=== PATIENT | female | born 1940 | race Caucasian/White ===

== ENCOUNTER → 2022-03-12 | Outpatient (CLI) | payer OTHER ==
[~2022-03-12] MED LIST: ASPI-543 PO; ASPI1TAB20 PO; ATO40T PO; ESOM40CA39 PO; EZET10TA22 OR; EZET10TA22 PO; LOSA25TA38 PO; METO-158 PO; METO25TA5 PO
[2022-03-12 13:26] LABS: Basophils # (auto) 0 10 ^3/uL (0-0.2); Basophils % (auto) 0.5 % (0.0-2.0); Eosinophils # (auto) 0.1 10 ^3/uL (0-0.8); Eosinophils % (auto) 1.9 % (0.0-7.0); Hematocrit 41.8 % (36.0-46.0); Hemoglobin 13.9 g/dL (12.2-16.2); Lymphocytes # (auto) 1.3 10 ^3/uL (0.4-5.4); Lymphocytes % (auto) 18.2 % (10.0-50.0); Mean Corpuscular Hemoglobin 29.3 pg (28.0-32.0); Mean Corpuscular Hgb Conc. 33.3 g/dL (32.0-36.0); Mean Corpuscular Volume 87.8 fL (80.0-100.0); Monocytes # (auto) 0.4 10 ^3/uL (0-1.3); Monocytes % (auto) 6.1 % (0.0-12.0); Neutrophils # (auto) 5.4 10 ^3/uL (1.6-8.6); Neutrophils % (auto) 73.3 % (37.0-80.0); Red Blood Cells 4.76 10^6/uL (4.0-5.20); Red Cell Distribution Width 14.1 % (11.8-14.3); White Blood Cell 7.4 10^3/uL (4.4-10.8)
[2022-03-12 13:45] LABS: Free T4 (Free Thyroxine) 1.39 ng/dL (0.89-1.76)
[2022-03-12 13:46] LABS: Folate (Folic Acid) 14.46 ng/mL (5.38-24)
[2022-03-12 13:53] LABS: Calcium 9.4 mg/dL (8.5-10.1); Potassium 3.3 mmol/L (3.5-5.1)
[2022-03-12 13:59] LABS: Albumin 3.9 g/dL (3.4-5.0); Bilirubin, Total 0.5 mg/dL (0.2-1.0); Total Protein 7.5 g/dL (6.4-8.2)
[2022-03-13 06:07] LABS: RPR Non Reactive (Non Reactive)
== END | disposition home or self-care (01) ==
LOC: LAB 12:33
PROVIDERS: ATTEND Internal Medicine
DX: I10 Essential (primary) hypertension (principal); R73.03 Prediabetes; R41.81 Age-related cognitive decline
CPT/HCPCS: 36415; 80053; 80061; 82607; 82746; 83036; 84439; 84443; 85025; 85652; 86592

== ENCOUNTER → 2023-09-24 | Outpatient (CLI) | payer OTHER ==
[~2023-09-24] MED LIST changes: +ASCO500C5 OR; +ATOR40TA52 PO; +CHLO25TA2 PO; +CHOL20007 PO; +DIPH1TAB30 PO; +ESOM20CA PO; +HYDR12.59 PO; +LOSA25TA15 PO; -LOSA25TA38 PO; +MET50T PO; +TRAZ-181 PO
[2023-09-24 14:14] LABS: Basophils # (auto) 0 10 ^3/uL (0-0.2); Basophils % (auto) 0.4 % (0.0-2.0); Eosinophils # (auto) 0.2 10 ^3/uL (0-0.8); Eosinophils % (auto) 3.6 % (0.0-7.0); Hemoglobin 13.1 g/dL (12.2-16.2); Lymphocytes # (auto) 1.6 10 ^3/uL (0.4-5.4); Lymphocytes % (auto) 36.8 % (10.0-50.0); Mean Corpuscular Hemoglobin 30.5 pg (28.0-32.0); Mean Corpuscular Hgb Conc. 33.6 g/dL (32.0-36.0); Mean Corpuscular Volume 90.7 fL (80.0-100.0); Monocytes # (auto) 0.3 10 ^3/uL (0-1.3); Monocytes % (auto) 5.9 % (0.0-12.0); Neutrophils # (auto) 2.3 10 ^3/uL (1.6-8.6); Neutrophils % (auto) 53.3 % (37.0-80.0); Red Blood Cells 4.29 10^6/uL (4.0-5.20); Red Cell Distribution Width 13.4 % (11.8-14.3); White Blood Cell 4.4 10^3/uL (4.4-10.8)
[2023-09-24 14:40] LABS: Alanine Aminotransferase 19 U/L (7-40); Alkaline Phosphatase 91 U/L (46-116); Anion Gap 6 (5-15); Aspartate Aminotransferase 19 U/L (13-40); BUN/Creatinine Ratio 11.9 (10.0-20.0); Blood Urea Nitrogen 7 mg/dL (9-23); Calcium 9.7 mg/dL (8.5-10.1); Carbon Dioxide 30 mmol/L (20-30); Chloride 97 mmol/L (98-107); Glucose 102 mg/dL (74-106); Potassium 3.7 mmol/L (3.5-5.1); Sodium 133 mmol/L (136-145)
[2023-09-24 14:42] LABS: Albumin 4.4 g/dL (3.2-4.8); Bilirubin, Total 0.7 mg/dL (0.2-1.0); Total Protein 6.6 g/dL (5.7-8.2)
[2023-09-24 14:48] LABS: Erythrocyte Sedimentation Rate 7 mm/hr (0-20)
== END | disposition home or self-care (01) ==
LOC: LAB 13:50
PROVIDERS: ATTEND Internal Medicine
DX: R73.03 Prediabetes (principal)
CPT/HCPCS: 36415; 80053; 83036; 84439; 84443; 85025; 85652

== ENCOUNTER 2023-12-16 20:51 | Inpatient (IN) | payer MEDICARE, OTHER ==
[~2023-12-16] VITALS: Ht 157.5 cm; Wt 69.0 kg
[~2023-12-16 20:51] MED LIST changes: -ATO40T PO; +ATOR-507 PO; +LOSA-533 PO; -LOSA25TA15 PO
[2023-12-16 22:45] LABS: Basophils # (auto) 0 10 ^3/uL (0-0.2); Basophils % (auto) 0.4 % (0.0-2.0); Eosinophils # (auto) 0 10 ^3/uL (0-0.8); Hematocrit 37.4 % (36.0-46.0); Hemoglobin 12.9 g/dL (12.2-16.2); Lymphocytes # (auto) 1.1 10 ^3/uL (0.4-5.4); Lymphocytes % (auto) 12.7 % (10.0-50.0); Mean Corpuscular Hemoglobin 30.3 pg (28.0-32.0); Mean Corpuscular Hgb Conc. 34.4 g/dL (32.0-36.0); Monocytes # (auto) 0.6 10 ^3/uL (0-1.3); Monocytes % (auto) 7.2 % (0.0-12.0); Neutrophils # (auto) 6.7 10 ^3/uL (1.6-8.6); Neutrophils % (auto) 79.7 % (37.0-80.0); Nucleated Red Blood Cells % 0.1 %; Red Blood Cells 4.25 10^6/uL (4.0-5.20); Red Cell Distribution Width 12.6 % (11.8-14.3); White Blood Cell 8.4 10^3/uL (4.4-10.8)
[2023-12-16 22:55] LABS: Alanine Aminotransferase 12 U/L (7-40); Alkaline Phosphatase 87 U/L (46-116); Anion Gap 6 (5-15); Aspartate Aminotransferase 13 U/L (13-40); BUN/Creatinine Ratio 9.2 (10.0-20.0); Blood Urea Nitrogen 6 mg/dL (9-23); Calcium 9.4 mg/dL (8.5-10.1); Carbon Dioxide 28 mmol/L (20-30); Chloride 99 mmol/L (98-107); Glucose 115 mg/dL (74-106); Potassium 2.7 mmol/L (3.5-5.1); Sodium 133 mmol/L (136-145)
[2023-12-16 22:56] LABS: Albumin 4.1 g/dL (3.2-4.8); Bilirubin, Total 0.6 mg/dL (0.2-1.0); Total Protein 6.6 g/dL (5.7-8.2)
[2023-12-17] MEDS: ONDANSETRON HCL 4 MG/2 ML VIAL IV ONE (00:45)
[2023-12-17] MEDS: PANTOPRAZOLE 40 MG/10 ML VIAL INJ IV ONE (00:45)
[2023-12-17] MEDS: SODIUM CHLORIDE 0.9% 1,000 ML IV ONE (01:45)
[2023-12-17] MEDS: POTASSIUM CHL 20 Meq TABLET PO ONE (01:45)
[2023-12-17] MEDS: levoFLOXacin 500MG 100 ML IV ONE (03:30)
[2023-12-17] MEDS: metroNIDAZOLE 500MG/100ML 100 ML IV ONE (03:30)
[2023-12-17] MEDS ORDERED: ONDANSETRON HCL 4 MG/2 ML VIAL IV PRN (04:15)
[2023-12-17] MEDS ORDERED: HYDROcodone-ACET 5/325MG TAB PO PRN (04:15)
[2023-12-17 07:51] VITALS: O2SAT 98
[2023-12-17] MEDS: POTASSIUM CHLORIDE 40 MEQ, LIDOCAINE 1% (LOCAL ANESTH.) 4 ML in SODIUM CHL 0.9% 250 ML IV ONE (08:20)
[2023-12-17] MEDS ORDERED: levoFLOXacin 500MG 100 ML IV SCH (10:00)
[2023-12-17] MEDS: METOPROLOL TARTRATE 25 MG TAB PO SCH (10:01)
[2023-12-17] MEDS: ASPirin 81 mg TAB PO SCH (10:01)
[2023-12-17] MEDS: levoFLOXacin 250MG 50 ML IV SCH (10:02)
[2023-12-17] MEDS: hydroCHLOROthiazide 25 MG TAB PO SCH (10:02)
[2023-12-17] MEDS: metroNIDAZOLE 500MG/100ML 100 ML IV SCH (12:09)
[2023-12-17 14:00] VITALS: PULSE 70; RESP 18; O2SAT 98
[2023-12-17 17:20] VITALS: BP 134/59; PULSE 68; RESP 18; TEMP 98.2; O2SAT 99
[2023-12-17] MEDS ORDERED: FLUO10TA18 PO (18:21)
[2023-12-17] MEDS ORDERED: APIX2.5T PO (18:21)
[2023-12-17] MEDS ORDERED: VALS1TAB57 PO (18:21)
[2023-12-17] MEDS ORDERED: AMLO1TAB21 PO (18:21)
[2023-12-17] MEDS ORDERED: EZET-10 PO (18:21)
[2023-12-17] MEDS: ACETAMINOPHEN 325 MG TAB PO PRN (18:55)
[2023-12-17] MEDS: ATORVASTATIN 20 MG TAB PO SCH (21:38)
[2023-12-17 22:00] VITALS: BP 120/50; PULSE 65; RESP 18; TEMP 98.3; O2SAT 97
[2023-12-17] MEDS: metroNIDAZOLE 500 MG TAB PO SCH (22:10)
[2023-12-18] VITALS (7 sets, daily range): BP systolic 115–130; BP diastolic 50–65; PULSE 59–63; RESP 15–19; TEMP 97.6–98.9; O2SAT 95–98
[2023-12-18 02:49] LABS: Urine Bacteria None Seen /hpf (None Seen)
[2023-12-18 03:46] LABS: Urine Blood Negative /uL (Negative); Urine Clarity Clear (Clear); Urine Color Yellow (Yellow); Urine Mucus FEW (None Seen); Urine Protein, UAD TRACE (Negative); Urine Specific Gravity 1.021 (1.001-1.035); Urine Urobilinogen Normal (Negative); Urine WBC 7 /hpf (0 - 5)
[2023-12-18 07:04] LABS: Basophils # (auto) 0 10 ^3/uL (0-0.2); Basophils % (auto) 0.1 % (0.0-2.0); Eosinophils # (auto) 0.7 10 ^3/uL (0-0.8); Eosinophils % (auto) 10.7 % (0.0-7.0); Hematocrit 33.7 % (36.0-46.0); Hemoglobin 11.6 g/dL (12.2-16.2); Lymphocytes # (auto) 0.9 10 ^3/uL (0.4-5.4); Lymphocytes % (auto) 13.8 % (10.0-50.0); Mean Corpuscular Hemoglobin 30.7 pg (28.0-32.0); Mean Corpuscular Hgb Conc. 34.3 g/dL (32.0-36.0); Mean Corpuscular Volume 89.4 fL (80.0-100.0); Monocytes # (auto) 0.7 10 ^3/uL (0-1.3); Monocytes % (auto) 9.7 % (0.0-12.0); Neutrophils # (auto) 4.5 10 ^3/uL (1.6-8.6); Neutrophils % (auto) 65.7 % (37.0-80.0); Nucleated Red Blood Cells % 0.1 %; Red Blood Cells 3.77 10^6/uL (4.0-5.20); Red Cell Distribution Width 12.9 % (11.8-14.3); White Blood Cell 6.8 10^3/uL (4.4-10.8)
[2023-12-18 07:54] LABS: Alanine Aminotransferase 10 U/L (7-40); Albumin 3.3 g/dL (3.2-4.8); Alkaline Phosphatase 67 U/L (46-116); Anion Gap 6 (5-15); Aspartate Aminotransferase 14 U/L (13-40); Calcium 9.2 mg/dL (8.7-10.4); Carbon Dioxide 23 mmol/L (20-30); Chloride 106 mmol/L (98-107); Glucose 99 mg/dL (74-106); Potassium 2.9 mmol/L (3.5-5.1); Sodium 135 mmol/L (136-145)
[2023-12-18 07:56] LABS: Total Protein 5.6 g/dL (5.7-8.2)
[2023-12-18 08:10] LABS: BUN/Creatinine Ratio 7.9 (10.0-20.0); Blood Urea Nitrogen < 5 mg/dL (9-23)
[2023-12-18 08:38] LABS: Bilirubin, Total 0.4 mg/dL (0.2-1.0)
[2023-12-18] MEDS: LACTATED RINGER'S 1,000 ML IV SCH (16:49)
[2023-12-19] VITALS (7 sets, daily range): BP systolic 123–146; BP diastolic 42–62; PULSE 57–67; RESP 16–20; TEMP 97.5–98.3; O2SAT 93–99
[2023-12-19 07:37] LABS: Alanine Aminotransferase 10 U/L (7-40); Albumin 3.3 g/dL (3.2-4.8); Alkaline Phosphatase 75 U/L (46-116); Anion Gap 3 (5-15); Aspartate Aminotransferase 15 U/L (13-40); Bilirubin, Total 0.4 mg/dL (0.2-1.0); Calcium 9.1 mg/dL (8.5-10.1); Carbon Dioxide 28 mmol/L (20-30); Chloride 104 mmol/L (98-107); Glucose 99 mg/dL (74-106); Potassium 2.9 mmol/L (3.5-5.1); Sodium 135 mmol/L (136-145); Total Protein 5.3 g/dL (5.7-8.2)
[2023-12-19 07:49] LABS: BUN/Creatinine Ratio 9.8 (10.0-20.0); Blood Urea Nitrogen < 5 mg/dL (9-23)
[2023-12-19] MEDS: POTASSIUM CHL 20 Meq TABLET PO ONE (11:17)
[2023-12-19] MEDS: metroNIDAZOLE 500 MG TAB PO SCH (14:05)
[2023-12-19] MEDS: diphenhdrAMINE HCL 25 MG CAP PO PRN (17:03)
[2023-12-20 01:00] VITALS: BP 121/64; PULSE 69; RESP 16; TEMP 98; O2SAT 97
[2023-12-20 05:00] VITALS: BP 115/71; PULSE 59; RESP 18; TEMP 98; O2SAT 99
[2023-12-20 08:10] VITALS: PULSE 64; RESP 16; O2SAT 95
[2023-12-20 08:45] VITALS: BP 143/60; PULSE 64; RESP 16; TEMP 98; O2SAT 95
[2023-12-20] MEDS ORDERED: DIPH25CA51 PO (10:20)
[2023-12-20] MEDS ORDERED: LEVO500T91 PO (10:20)
[2023-12-20] MEDS ORDERED: METR-344 PO (10:20)
[2023-12-20 12:43] VITALS: BP 147/66; PULSE 59; RESP 16; TEMP 98.2; O2SAT 94
== END 2023-12-20 15:30 | disposition home or self-care (01) | DRG 392 ==
LOC: ER 20:51 → EDBD 20:51 → OVERFLOW 12-17 04:19 → CENTRAL 12-17 17:22
PROVIDERS: ADMIT Nurse Practitioner; ATTEND Family Medicine
DX: K52.9 Noninfective gastroenteritis and colitis, unspecified (principal); E86.0 Dehydration; E87.6 Hypokalemia; I48.91 Unspecified atrial fibrillation; I10 Essential (primary) hypertension; E11.9 Type 2 diabetes mellitus without complications; E78.00 Pure hypercholesterolemia, unspecified; Z86.73 Personal history of transient ischemic attack (TIA), and cerebral infarction without residual deficits; Z87.11 Personal history of peptic ulcer disease; Z90.710 Acquired absence of both cervix and uterus; Z79.899 Other long term (current) drug therapy; Z79.4 Long term (current) use of insulin
CPT/HCPCS: 36415; 71045; 74176; 80053; 81001; 83986; 84484; 85025; 85048; 87045; 87077; 87186; 87427; 87493; 93005; 96361; 96365; 96366; 96367; 96375; 99291; C9113; G0378; J1956; J2001; J2405; J3490

== ENCOUNTER → 2024-02-04 | Outpatient (CLI) | payer OTHER ==
[~2024-02-04] MED LIST changes: +AMLO1TAB21 PO; +APIX2.5T PO; +DIPH25CA51 PO; +EZET-10 PO; +FLUO10TA18 PO; +LEVO500T91 PO; +METR-344 PO; +VALS1TAB57 PO
== END | disposition home or self-care (01) ==
LOC: XYW 09:52
PROVIDERS: ATTEND Student in an Organized Health Care Education/Training Program
DX: I35.8 Other nonrheumatic aortic valve disorders (principal); I48.0 Paroxysmal atrial fibrillation; I51.89 Other ill-defined heart diseases
CPT/HCPCS: 93306

== ENCOUNTER 2024-02-28 14:20 | Emergency (ER) | payer OTHER ==
[~2024-02-28] VITALS: Ht 165.1 cm; Wt 60.0 kg
[2024-02-28 16:06] VITALS: PULSE 82; RESP 20; O2SAT 96
[2024-02-28] MEDS: diphenhdrAMINE HCL 25 MG CAP PO ONE (16:17)
[2024-02-28] MEDS: DexAMETHasone SOD PHOS 10MG/1ML VIAL INJ IM ONE (16:17)
[2024-02-28 17:05] VITALS: BP 122/68; PULSE 80; RESP 20; TEMP 98.1; O2SAT 95
== END 2024-02-28 17:08 | disposition home or self-care (01) ==
LOC: ER 14:20
DX: R21 Rash and other nonspecific skin eruption (principal); T50.905A Adverse effect of unspecified drugs, medicaments and biological substances, initial encounter; K62.89 Other specified diseases of anus and rectum; Z79.899 Other long term (current) drug therapy; Z90.710 Acquired absence of both cervix and uterus; Z98.890 Other specified postprocedural states; Z88.0 Allergy status to penicillin; Z88.2 Allergy status to sulfonamides; Z88.5 Allergy status to narcotic agent; Z88.8 Allergy status to other drugs, medicaments and biological substances; Y92.89 Other specified places as the place of occurrence of the external cause
CPT/HCPCS: 96372; 99283; J1100

== ENCOUNTER → 2024-04-10 | Outpatient (CLI) | payer OTHER ==
[2024-04-10 10:43] LABS: Urine Bacteria None Seen /hpf (None Seen)
[2024-04-10 10:48] LABS: Basophils # (auto) 0 10 ^3/uL (0-0.2); Basophils % (auto) 0.5 % (0.0-2.0); Eosinophils # (auto) 0.2 10 ^3/uL (0-0.8); Hematocrit 38.7 % (36.0-46.0); Hemoglobin 13.5 g/dL (12.2-16.2); Lymphocytes # (auto) 1.6 10 ^3/uL (0.4-5.4); Lymphocytes % (auto) 33.1 % (10.0-50.0); Mean Corpuscular Hemoglobin 30.8 pg (28.0-32.0); Mean Corpuscular Hgb Conc. 34.9 g/dL (32.0-36.0); Mean Corpuscular Volume 88.2 fL (80.0-100.0); Monocytes # (auto) 0.3 10 ^3/uL (0-1.3); Monocytes % (auto) 5.9 % (0.0-12.0); Neutrophils # (auto) 2.7 10 ^3/uL (1.6-8.6); Neutrophils % (auto) 56.5 % (37.0-80.0); Nucleated Red Blood Cells % 0.1 %; Platelet Count (auto) 202 10^3/uL (140-450); Red Blood Cells 4.39 10^6/uL (4.0-5.20); Red Cell Distribution Width 14.3 % (11.8-14.3); White Blood Cell 4.8 10^3/uL (4.4-10.8)
[2024-04-10 11:02] LABS: Urine Blood Negative /uL (Negative); Urine Clarity Clear (Clear); Urine Color Light-Yellow (Yellow); Urine Protein, UAD Negative (Negative); Urine Specific Gravity 1.008 (1.001-1.035); Urine Urobilinogen Normal (Negative); Urine WBC 1 /hpf (0 - 5)
[2024-04-10 11:15] LABS: Creatinine, Urine 42.75 mg/dL (30.0-125.0)
[2024-04-10 11:21] LABS: Erythrocyte Sedimentation Rate 12 mm/hr (0-20)
[2024-04-10 11:31] LABS: Alanine Aminotransferase 14 U/L (7-40); Albumin 4.4 g/dL (3.2-4.8); Alkaline Phosphatase 102 U/L (46-116); Anion Gap 5 (5-15); Aspartate Aminotransferase 13 U/L (13-40); BUN/Creatinine Ratio 11.1 (10.0-20.0); Bilirubin, Total 0.6 mg/dL (0.2-1.0); Blood Urea Nitrogen 7 mg/dL (9-23); CRP High Sensitivity 0.02 mg/dL (<1.0); Calcium 10.4 mg/dL (8.7-10.4); Carbon Dioxide 29 mmol/L (20-31); Chloride 102 mmol/L (98-107); Cholesterol 159 mg/dL (< 200); Glucose 102 mg/dL (74-106); HDL Cholesterol 69 mg/dL (40-59); LDL Cholesterol 65 mg/dL (< 100); Potassium 3.9 mmol/L (3.5-5.1); Sodium 136 mmol/L (136-145); Total Protein 6.8 g/dL (5.7-8.2); Triglycerides 135 mg/dL (< 150)
== END | disposition home or self-care (01) ==
LOC: LAB 10:28
PROVIDERS: ATTEND Internal Medicine
DX: I10 Essential (primary) hypertension (principal); I25.10 Atherosclerotic heart disease of native coronary artery without angina pectoris; R73.03 Prediabetes; Z79.899 Other long term (current) drug therapy
CPT/HCPCS: 36415; 80053; 80061; 81001; 82043; 82306; 82570; 83036; 84439; 84443; 85025; 85652; 86141

== ENCOUNTER → 2024-08-21 | Day surgery (SDC) | payer OTHER ==
[2024-08-18 12:42] LABS: Urine Bacteria None Seen /hpf (None Seen)
[2024-08-18 13:06] LABS: Basophils # (auto) 0 10 ^3/uL (0-0.2); Basophils % (auto) 0.5 % (0.0-2.0); Eosinophils # (auto) 0.1 10 ^3/uL (0-0.8); Eosinophils % (auto) 1.2 % (0.0-7.0); Hematocrit 40.8 % (36.0-46.0); Hemoglobin 13.8 g/dL (12.2-16.2); Lymphocytes # (auto) 1.8 10 ^3/uL (0.4-5.4); Lymphocytes % (auto) 22.2 % (10.0-50.0); Mean Corpuscular Hemoglobin 30.4 pg (28.0-32.0); Mean Corpuscular Hgb Conc. 33.9 g/dL (32.0-36.0); Mean Corpuscular Volume 89.7 fL (80.0-100.0); Monocytes # (auto) 0.5 10 ^3/uL (0-1.3); Neutrophils # (auto) 5.6 10 ^3/uL (1.6-8.6); Neutrophils % (auto) 70.1 % (37.0-80.0); Nucleated Red Blood Cells % 0.2 %; Platelet Count (auto) 234 10^3/uL (140-450); Red Blood Cells 4.55 10^6/uL (4.0-5.20); Red Cell Distribution Width 13.5 % (11.8-14.3); White Blood Cell 8.1 10^3/uL (4.4-10.8)
[2024-08-18 13:18] LABS: Urine Blood 1+ /uL (Negative); Urine Clarity Ex.Turbid (Clear); Urine Color Light-Brown (Yellow); Urine Hyaline Cast MANY /lpf (0 - 2); Urine Protein, UAD 1+ (Negative); Urine Squamous Epithelial Cell None Seen /hpf (<5); Urine Urobilinogen Normal (Negative); Urine WBC 1340 /HPF (0-5); Urine WBC Clumps PRESENT /hpf (None Seen); Urine pH 6.5 (5.0-9.0)
[2024-08-18 13:22] LABS: INR 0.95 (0.9-1.15); Prothrombin Time 10.1 sec (9.3-11.8)
[2024-08-18 14:01] LABS: Alanine Aminotransferase 16 U/L (7-40); Albumin 4.5 g/dL (3.2-4.8); Alkaline Phosphatase 105 U/L (46-116); Anion Gap 8 (5-15); Aspartate Aminotransferase 19 U/L (13-40); BUN/Creatinine Ratio 9.7 (10.0-20.0); Bilirubin, Total 0.6 mg/dL (0.2-1.0); Carbon Dioxide 27 mmol/L (20-31); Total Protein 7.2 g/dL (5.7-8.2)
[2024-08-18 14:22] LABS: Blood Urea Nitrogen 6 mg/dL (9-23); Calcium 10.5 mg/dL (8.7-10.4); Chloride 95 mmol/L (98-107); Glucose 114 mg/dL (74-106); Sodium 130 mmol/L (136-145)
[~2024-08-21] VITALS: Ht 162.6 cm; Wt 63.5 kg
[~2024-08-21] MED LIST changes: +DexAMETHasone SOD PHOS 10MG/1ML VIAL INJ ONE; +EPINEPHrine HCL 1 MG/10 ML SYRG ONE; +MIDAZOLAM HCL 2MG/2ML 2ml VIAL (1mg/ml) ONE; +PROPOFOL 10 MG/ML 20 ML IV ONE; +fentaNYL CITRATE 100 MCG/2 ML VL ONE
[2024-08-21 10:55] VITALS: PULSE 60; RESP 13; TEMP 97; O2SAT 99
[2024-08-21 11:25] VITALS: BP 148/67; PULSE 76; RESP 11; O2SAT 97
--- NOTE | 2024-08-21 11:35 | DVHOP2 ---
Operative Report DATE OF OPERATION: 08/21/24 PROCEDURE: Colonoscopy with cold biopsy polypectomy. PREOPERATIVE INDICATION: The patient is a 83 -year-old female undergoing colonoscopy for change in bowel habits suspected colitis and diarrhea POSTOPERATIVE DIAGNOSES: 1. 2 mm benign-appearing cecal polyp was seen and removed completely via cold biopsy forceps, there was mild oozing from the polypectomy site with some submucosal hematoma but is started coagulating 2. Moderate sigmoid diverticular disease, mild tortuosity and redundancy of the colon ; no colitis noted but random colon biopsies were obtained 3. 1+ internal hemorrhoids otherwise normal examination up to the cecum and terminal ileum PROCEDURE PERFORMED BY: Jerzy Killian M.D. SCOPE: Olympus videocolonoscope. ASA CLASS: 3. PREOPERATIVE MEDICATIONS: Dr. Jasper Oro PROCEDURE IN DETAIL: After obtaining an informed consent, the patient was placed on left lateral decubitus position. She was then sedated with the above medications. A rectal examination was performed that was normal. The colonoscope was then passed through the anus into the rectosigmoid and through the descending, transverse, and ascending colon up to the cecum with visualization of the appendiceal orifice, base of the cecum and the ileocecal valve. The colonoscope was then withdrawn. The distal 5-10 cm of the terminal ileum were normal In the base of the cecum there was a 2 mm benign-appearing polyp that was removed completely via cold biopsy forceps However there was some oozing from this biopsy site along with the formation of a small submucosal hematoma. The bleeding resolved spontaneously No other polyps or masses were seen. There was no obvious colitis. Random colon biopsies were obtained to rule out microscopic colitis Patient had [id number] sigmoid diverticular disease with sigmoid muscular hypertrophy. Patient had mild tortuosity and redundancy of the colon. On retroflexion she had 1+ internal hemorrhoids The patient tolerated the procedure well without difficulty. WITHDRAWAL TIME: 12 minutes QUALITY OF THE PREP: [place] Bowel Prep score: 9. COMPLICATIONS : None SPECIMENS: Cecal polyp Random colon biopsies DISPOSITION: Stable D/C to home PLAN: 1. Repeat colonoscopy base on biopsy result likely in 3-5 years if patient's health is stable 2. Resume GI soft diet advance as tolerated 3. Await biopsy results 4. Increase fluid and fiber intake 5. Outpatient follow up with me in 2-4 weeks to review results and discuss further management 6. Patient was advised to hold her Xarelto for 5-7 days JERZY KILLIAN MD Aug 21, 2024 11:35
== END | disposition home or self-care (01) ==
LOC: GI 08:47
PROVIDERS: ATTEND Internal Medicine Gastroenterology
DX: R19.4 Change in bowel habit (principal); K62.89 Other specified diseases of anus and rectum; D12.0 Benign neoplasm of cecum; Q43.8 Other specified congenital malformations of intestine; K64.0 First degree hemorrhoids; I10 Essential (primary) hypertension; I25.10 Atherosclerotic heart disease of native coronary artery without angina pectoris; E11.9 Type 2 diabetes mellitus without complications; I69.398 Other sequelae of cerebral infarction; H53.8 Other visual disturbances; Z79.899 Other long term (current) drug therapy; Z79.01 Long term (current) use of anticoagulants; Z88.2 Allergy status to sulfonamides; Z88.0 Allergy status to penicillin; Z90.710 Acquired absence of both cervix and uterus; Z98.891 History of uterine scar from previous surgery; Z98.890 Other specified postprocedural states
CPT/HCPCS: 36415; 45380; 80053; 81001; 85025; 85610; 85730; 87086; 88305; J0171; J1100; J2250; J2704; J3010; J7030

== ENCOUNTER → 2024-09-02 | Outpatient (CLI) | payer OTHER ==
[~2024-09-02] MED LIST changes: -DexAMETHasone SOD PHOS 10MG/1ML VIAL INJ ONE; -EPINEPHrine HCL 1 MG/10 ML SYRG ONE; -MIDAZOLAM HCL 2MG/2ML 2ml VIAL (1mg/ml) ONE; -PROPOFOL 10 MG/ML 20 ML IV ONE; -fentaNYL CITRATE 100 MCG/2 ML VL ONE
[2024-09-02 15:34] LABS: Urine Amorphous Crystal FEW /hpf (None Seen); Urine Bacteria FEW /hpf (None Seen); Urine Blood Negative /uL (Negative); Urine Clarity Clear (Clear); Urine Color Light-Yellow (Yellow); Urine Protein, UAD Negative (Negative); Urine Specific Gravity 1.012 (1.001-1.035); Urine Squamous Epithelial Cell None Seen /hpf (<5); Urine Urobilinogen Normal (Negative); Urine WBC 25 /HPF (0-5); Urine pH 6.5 (5.0-9.0)
[2024-09-02 15:35] LABS: Basophils # (auto) 0 10 ^3/uL (0-0.2); Basophils % (auto) 0.2 % (0.0-2.0); Eosinophils # (auto) 0.1 10 ^3/uL (0-0.8); Eosinophils % (auto) 1.2 % (0.0-7.0); Hematocrit 40.6 % (36.0-46.0); Hemoglobin 13.7 g/dL (12.2-16.2); Lymphocytes # (auto) 2.1 10 ^3/uL (0.4-5.4); Lymphocytes % (auto) 30.8 % (10.0-50.0); Mean Corpuscular Hemoglobin 30.3 pg (28.0-32.0); Mean Corpuscular Hgb Conc. 33.8 g/dL (32.0-36.0); Mean Corpuscular Volume 89.6 fL (80.0-100.0); Monocytes # (auto) 0.4 10 ^3/uL (0-1.3); Monocytes % (auto) 5.3 % (0.0-12.0); Neutrophils # (auto) 4.2 10 ^3/uL (1.6-8.6); Neutrophils % (auto) 62.5 % (37.0-80.0); Platelet Count (auto) 257 10^3/uL (140-450); Red Blood Cells 4.53 10^6/uL (4.0-5.20); Red Cell Distribution Width 13.3 % (11.8-14.3); White Blood Cell 6.7 10^3/uL (4.4-10.8)
[2024-09-02 15:56] LABS: Alanine Aminotransferase 19 U/L (7-40); Alkaline Phosphatase 108 U/L (46-116); Anion Gap 9 (5-15); Aspartate Aminotransferase 16 U/L (13-40); BUN/Creatinine Ratio 23.6 (10.0-20.0); Bilirubin, Total 0.4 mg/dL (0.2-1.0); Blood Urea Nitrogen 17 mg/dL (9-23); Carbon Dioxide 30 mmol/L (20-31); Chloride 98 mmol/L (98-107); Sodium 137 mmol/L (136-145); Total Protein 7.2 g/dL (5.7-8.2)
[2024-09-02 16:01] LABS: Calcium 10.4 mg/dL (8.7-10.4); Glucose 110 mg/dL (74-106); Potassium 3.4 mmol/L (3.5-5.1)
[2024-09-02 16:02] LABS: Albumin 4.9 g/dL (3.2-4.8)
[2024-09-03 08:07] LABS: Immunoglobulin A 267 mg/dL (64-422)
[2024-09-05 06:06] LABS: Endomysial IgA Antibody Negative (Negative)
[2024-09-05 17:07] LABS: t-Transglutaminase (tTG) IgA <2 U/mL (0-3)
[2024-09-05 19:06] LABS: IgE Brazil Nut <0.10 kU/L (Class 0); IgE Egg White <0.10 kU/L (Class 0); IgE Tri a 19(w-5 gliadin) <0.10 kU/L (Class 0); IgE Wheat <0.10 kU/L (Class 0)
== END | disposition home or self-care (01) ==
LOC: LAB 14:51
PROVIDERS: ATTEND Internal Medicine Gastroenterology
DX: K63.5 Polyp of colon (principal); R19.7 Diarrhea, unspecified; R97.8 Other abnormal tumor markers
CPT/HCPCS: 36415; 80053; 81001; 82378; 82784; 83516; 84443; 85025; 86003; 86255

== ENCOUNTER 2024-10-15 13:46 | Inpatient (IN) | payer OTHER ==
[~2024-10-15] VITALS: Ht 165.1 cm; Wt 72.7 kg
--- NOTE | 2024-10-15 14:31 | ED.PDOC ---
HPI Comments 83 y/o F, with PMHX of CVA, HTN, HLD, and A-Fib presents to the ED for CC of hypertension. Patient states, she has been experiencing high blood pressure reading with associated left ear pain and ringing x2days. Patient endorses, new onset symptoms of dizziness starting today (10/15/24). Patient denies weakness, headache, chest pain, or shortness of breath. No other symptoms or modifying factors present at this time. Chief Complaint: High Blood Pressure Time Seen by MD: 14:10 Primary Care Provider: HUE Reviewed Notes: Nurses Notes, Medications, Allergies Allergies: Coded Allergies: Famotidine (Verified Allergy, Unknown, 01/11/22) Pantoprazole (Unverified Allergy, Unknown, 04/08/14) Penicillins (Unverified Allergy, Unknown, 04/08/14) Rabeprazole (Unverified Allergy, Unknown, 04/08/14) Ranitidine (Verified Allergy, Unknown, 01/11/22) Sulfa Antibiotics (Unverified Allergy, Unknown, 04/08/14) Home Meds Active Scripts Diphenhydramine Hcl (BENADRYL CAPSULE) 25 Mg Cp, 25 MG PO QID PRN, #30 CAP Prov:HAILE LÓPEZ MD 12/20/23 Levofloxacin Hemihydrate (LEVAQUIN 500 MG) 500 Mg Tab, 1 TAB PO DAILY, #7 TAB Prov:HAILE LÓPEZ MD 12/20/23 Metronidazole (Flagyl) 500 Mg Tab, 1 TAB PO TID, #21 TAB Prov:HAILE LÓPEZ MD 12/20/23 Reported Medications Apixaban Base (ELIQUIS) 2.5 Mg Tab, 1 TAB PO BID 12/17/23 Fluoxetine Hcl (Fluoxetine Hcl) 10 Mg Tab, 1 CAP PO DAILY 12/17/23 Amlodipine Besylate (Amlodipine Besylate) 2.5 Mg Tab, 1 TAB PO DAILY 12/17/23 Ezetimibe (Ezetimibe) 10 Mg Tab, 1 TAB PO DAILY 12/17/23 Valsartan (Valsartan) 80 Mg Tab, TAB PO 12/17/23 Hydrochlorothiazide (Hydrochlorothiazide) 12.5 Mg Cap, 12.5 MG PO DAILY for 30 Days, MG 09/17/20 Diphenhydramine-Acetaminophen (Tylenol Pm Extra Strength 500-25 mg) 1 Tab Tab, 1 TAB PO HS PRN for FOR INSOMNIA, TAB 09/17/20 Trazodone HCl (Trazodone Hydrochloride) 50 Mg Tab, 50 MG PO HS, TAB 09/17/20 Cholecalciferol (VITAMIN D3) 2,000 Unit Tab, 1 TAB PO DAILY, #30 TAB 5 Refills 09/17/20 Ascorbic Acid (VITAMIN C) 500 Mg Chw, 500 MG OR DAILY, TAB.CHEW 09/17/20 Esomeprazole Magnesium Trihydr (Nexium) 20 Mg Cap, 1 CAP PO DAILY, #30 CAP 2 Refills 09/17/20 Metoprolol Tartrate (LOPRESSOR TABLET) 50 Mg Tb, 25 MG PO BID, TAB 09/17/20 Chlorthalidone (Chlorthalidone) 25 Mg Tab, 25 MG PO DAILY, TAB 09/17/20 Atorvastatin Calcium (ATORVASTATIN CALCIUM) 40 Mg Tab, 1 TAB PO QPM, #90 TAB 3 Refills 09/17/20 Esomeprazole Magnesium Trihydr (Nexium) 40 Mg Cap, 1 CAP PO DAILY, #30 CAP 5 Refills 09/06/16 Aspirin (Aspir-81) 81 Mg Tab, 1 TAB PO DAILY, #30 TAB 5 Refills 06/30/14 Atorvastatin Calcium (Lipitor) 40 Mg Tab, 1 TAB PO DAILY, #30 TAB 5 Refills 06/30/14 Metoprolol Tartrate (Metoprolol Tartrate) 50 Mg Tab, 25 MG PO BID, TAB 06/30/14 Aspirin (Aspir-Low) 81 Mg Tab, 81 MG PO DAILY, MG 04/08/14 Ezetimibe (Zetia) 10 Mg Tab, 1 TAB PO DAILY, #30 TAB 5 Refills 04/08/14 Losartan Potassium (Losartan Potassium) 25 Mg Tab, 25 MG PO DAILY for 30 Days, MG 04/08/14 Atorvastatin Calcium (Lipitor) 40 Mg Tab, 1 TAB PO QPM, #90 TAB 1 Refill 04/08/14 Esomeprazole Magnesium Trihydr (Nexium) 40 Mg Cap, 1 CAP PO DAILY, #30 CAP 5 Refills 04/08/14 Metoprolol Tartrate (Metoprolol Tartrate) 25 Mg Tab, 25 MG PO BID for 30 Days, MG 04/08/14 Ezetimibe (Zetia) 10 Mg Tab, 10 MG OR HS 03/05/11 Information Source: Patient Mode of Arrival: Ambulatory Severity: Moderate Timing: Days Duration: Since onset Prehospital treatment: None Onset: At Rest Cardiac Risk Factors: Hyperlipidemia, HTN PE Risk Factors: None History of: None Modifying Factors: Nothing Associated Signs and Symptoms: None Past Medical History PAST MEDICAL HISTORY: AFIB, CVA, DM, High Lipids, HTN, PUD Surgical History: Hysterectomy, Tonsillectomy Surgical History (Other): right foot [employer]VERTISING [employer] History: Denies all [employer]VERTISING [employer] Hx Family History Family History: Reviewed,noncontributory to illness Social History Smoker: Non-Smoker Alcohol: Denies ETOH Use Drugs: Denies Drug Use Lives In: Home Constitutional: denies: chills, diaphoresis, fatigue, fever, malaise, sweats, weakness, others EENTM: reports: ear pain, ear ringing; denies: blurred vision, double vision, ear bleeding, ear discharge, ear drainage, eye pain, eye redness, hearing loss, mouth pain, mouth swelling, nasal discharge, nose bleeding, nose congestion, nose pain, photophobia, tearing, throat pain, throat swelling, voice changes, others Respiratory: denies: cough, hemoptysis, orthopnea, SOB at rest, shortness of breath, SOB with excertion, stridor, wheezing, others Cardiovascular: denies: chest pain, dizzy spells, diaphoresis, Dyspnea on exertion, edema, irregular heart beat, left arm pain, lightheadedness, palpitations, PND, syncope, others Gastrointestinal: denies: abdomen distended, abdominal pain, blood streaked bowels, constipated, diarrhea, dysphagia, difficulty swallowing, hematemesis, melena, nausea, poor appetite, poor fluid intake, rectal bleeding, rectal pain, vomiting, others Genitourinary: denies: abnormal vagina bleeding, burning, dyspareunia, dysuria, flank pain, frequency, hematuria, incontinence, pain, , vagina discharge, urgency, others Neurological: reports: dizziness; denies: fainting, headache, left sided numbness, left sided weakness, numbness, paresthesia, pre-existing deficit, right sided numbness, right sided weakness, seizure, speech problems, tingling, tremors, weakness, others Musculoskeletal: denies: back pain, gout, joint pain, joint swelling, muscle pain, muscle stiffness, neck pain, others Integumetry: denies: bruises, change in color, change in hair/nails, dryness, laceration, lesions, lumps, rash, wounds, others Allergic/Immunocompromised: denies: Difficulty Healing, Frequent Infections, Hives, Itching, others Hematologic/Lymphatic: denies: anemia, blood clots, easy bleeding, easy bruising, swollen glands, others Endocrine: denies: excessive hunger, excessive sweating, excessive thirst, excessive urination, flushing, intolerance to cold, intolerance to heat, unexplained weight gain, unexplained weight loss, others Psychiatric: denies: anxiety, bipolar disorder, depression, hopeless, panic disorder, schizophrenia, sleepless, suicidal, others All Other Systems: Reviewed and Negative Physical Exam General Appearance: Moderate Distress HEENT: Normal ENT Inspection, Pharynx Normal, TMs Normal Neck: Full Range of Motion, Non-Tender, Normal, Normal Inspection Respiratory: Chest Non-Tender, Lungs Clear, No Accessory Muscle Use, No Respiratory Distress, Normal Breath Sounds Cardiovascular: No Edema, No JVD, No Murmur, No Gallop, Normal Peripheral Pulses, Regular Rate/Rhythm Breast Exam: Deferred Gastrointestinal: No Organomegaly, Non Tender, No Pulsatile Mass, Normal Bowel Sounds, Soft Genitalia: Deferred Pelvic: Deferred Rectal: Deferred Extremities: No calf tenderness, Normal capillary refill, Normal inspection, Normal range of motion, Non-tender, No pedal edema Musculoskeletal : Apperance: Normal Neurologic: Alert, community health promoter II-XII nml as Tested, No Motor Deficits, Normal Affect, Normal Mood, No Sensory Deficits Cerebellar Function: Normal Reflexes: Normal Skin: Dry, Normal Color, Warm Lymphatic: No Adenopathy EKG EKG : Pulse Rate (adult): 74 [place]: Normal Cardiac Rhythm: NSR Block: None Hypertrophy: None ST: Normal Was a procedure done? Was a procedure done?: No CP Differential Dx Differential Diagnosis: A-fib Differential Diagnosis: HTN Essential, HTN Accelerated X-Ray, Labs, Meds, VS Vital Signs Date Time Temp Pulse Resp B/P (MAP) Pulse Ox O2 Delivery O2 Flow Rate FiO2 10/15/24 18:46 75 16 97 Room Air* 0 21 10/15/24 18:32 75 16 97 Room Air 10/15/24 18:10 98.3 75 16 144/73 (96) 97 98.3 10/15/24 14:31 74 10/15/24 14:21 74 10/15/24 13:46 98.3 72 21 172/85 (114) 99 98.3 Lab Test 10/15/24 17:50 10/15/24 14:38 10/15/24 14:23 Range/Units Urine Color Light-yellow Yellow Urine Clarity Turbid H Clear Urine pH 6.5 5.0-9.0 Urine Specific [place] 1.012 1.001-1.035 Urine Protein Negative Negative Urine Ketones Negative Negative Urine Blood Negative Negative /uL Urine Nitrite 2+ H Negative Urine Bilirubin Negative Negative Urine Urobilinogen Normal Negative mg/dL Urine Leukocyte Esterase 3+ Negative /uL Urine RBC 2 0 - 4 /hpf Urine WBC Clumps Present None Seen /hpf Urine Microscopic WBC 100 H 0-5 /HPF Urine Squamous Epithelial Cells Few <5 /hpf Urine Bacteria None seen None Seen /hpf Urine Yeast (Budding) Few None Seen /hpf Urine Glucose Normal Normal mg/dL White Blood Count 5.6 4.4-10.8 10^3/uL Red Blood Count 4.55 4.0-5.20 10^6/uL Hemoglobin 13.9 12.2-16.2 g/dL Hematocrit 40.8 36.0-46.0 % Mean Corpuscular Volume 89.6 80.0-100.0 fL Mean Corpuscular Hemoglobin 30.5 28.0-32.0 pg Mean Corpuscular Hemoglobin Concent 34.0 32.0-36.0 g/dL Red Cell Distribution Width 13.6 11.8-14.3 % Platelet Count 212 140-450 10^3/uL Mean Platelet Volume 7.9 6.9-10.8 fL Neutrophils (%) (Auto) 63.7 37.0-80.0 % Lymphocytes (%) (Auto) 29.6 10.0-50.0 % Monocytes (%) (Auto) 4.6 0.0-12.0 % Eosinophils (%) (Auto) 1.6 0.0-7.0 % Basophils (%) (Auto) 0.5 0.0-2.0 % Neutrophils # (Auto) 3.5 1.6-8.6 10 ^3/uL Lymphocytes # (Auto) 1.6 0.4-5.4 10 ^3/uL Monocytes # (Auto) 0.3 0-1.3 10 ^3/uL Eosinophils # (Auto) 0.1 0-0.8 10 ^3/uL Basophils # (Auto) 0 0-0.2 10 ^3/uL Nucleated Red Blood Cells 0.1 % Sodium Level 134 L 136-145 mmol/L Potassium Level 3.8 3.5-5.1 mmol/L Chloride Level 98 98-107 mmol/L Carbon Dioxide Level 30 20-31 mmol/L Anion Gap 6 5-15 Blood Urea Nitrogen 11 9-23 mg/dL Creatinine 0.80 0.550-1.02 mg/dL Glomerular Filtration Rate Calc 72 >90 mL/min BUN/Creatinine Ratio 13.8 10.0-20.0 Serum Glucose 117 H 74-106 mg/dL Calcium Level 10.5 H 8.7-10.4 mg/dL POC Glucose 115 H 70-106 mg/dl CT: IMPRESSION: 1. No acute intracranial process. HS:Y The patient's CBC and chemistry panel are within normal limits The patient was glucose is elevated The urine test is positive for UTI The patient was given Levaquin 500 mg IV piggyback The patient was being admitted to the hospitalist Images Reviewed?: Images reviewed and evaluated by me Time of 1ST Reevaluation: 14:40 Reevaluation 1ST: Unchanged Patient Education/Counseling: Diagnosis, Treatment, Prognosis Family Education/Counseling: No Family Present Departure 1 Departure Time of Disposition: 19:07 Impression: Primary Impression: Hypertensive urgency Additional Impression: Autonomic dysfunction Disposition: ADMITTED INPATIENT Admit to: [facility] Condition: Fair Critical Care Note Critical Care Time?: No Stability Stability form required: Yes Unstable for transfer: Telemetry monitoring (Telemetry monitoring required), ED Physician Assesment (Clinical assesment) Heart Score Heart Score: Heart Score Response (Comments) Value History N/A 0 EKG N/A 0 Age N/A 0 Risk Factors N/A 0 Troponin N/A 0 Total 0 I personally scribed for HEBER RICHARD MD ([email or web address]) on 10/15/24 at 14:31. Electronically submitted by Mallorie Martinez ([email or web address]). I personally scribed for HEBER RICHARD MD ([email or web address]) on 10/15/24 at 15:08. Electronically submitted by Mallorie Martinez ([email or web address]). HEBER RICHARD MD Oct 15, 2024 14:31
--- NOTE | 2024-10-15 14:48 | DVH ---
EXAM: CT HEAD WITHOUT CONTRAST HISTORY: KIRBY COMPARISON: None TECHNIQUE: Axial images of the head were obtained and reformatted in coronal and sagittal planes. All CT scans at this medical facility are performed using dose modulation techniques as appropriate t o a performed exam including the following: Automated exposure control was utilized; adjustment of th e MA and/or KV according to patient size; and use of iterative reconstruction technique. CT Dose: CTDI volume is 53.11 mGy. Dose-length product is 940.46 mGy*cm FINDINGS: There is no evidence of acute intracranial hemorrhage, mass, mass effect midline shift. There is no h ydrocephalus or extra-axial fluid collection. There are chronic microvascular ischemic changes in the supratentorial white matter. There is a chronic lacunar infarct in the right basal ganglia. The visualized paranasal sinuses and mastoid air cells are clear. The calvarium is intact. IMPRESSION: 1. No acute intracranial process. HS:Y
[2024-10-15 14:55] LABS: Basophils # (auto) 0 10 ^3/uL (0-0.2); Basophils % (auto) 0.5 % (0.0-2.0); Eosinophils # (auto) 0.1 10 ^3/uL (0-0.8); Eosinophils % (auto) 1.6 % (0.0-7.0); Hematocrit 40.8 % (36.0-46.0); Hemoglobin 13.9 g/dL (12.2-16.2); Lymphocytes # (auto) 1.6 10 ^3/uL (0.4-5.4); Lymphocytes % (auto) 29.6 % (10.0-50.0); Mean Corpuscular Hemoglobin 30.5 pg (28.0-32.0); Mean Corpuscular Volume 89.6 fL (80.0-100.0); Monocytes # (auto) 0.3 10 ^3/uL (0-1.3); Monocytes % (auto) 4.6 % (0.0-12.0); Neutrophils # (auto) 3.5 10 ^3/uL (1.6-8.6); Neutrophils % (auto) 63.7 % (37.0-80.0); Nucleated Red Blood Cells % 0.1 %; Platelet Count (auto) 212 10^3/uL (140-450); Red Blood Cells 4.55 10^6/uL (4.0-5.20); Red Cell Distribution Width 13.6 % (11.8-14.3); White Blood Cell 5.6 10^3/uL (4.4-10.8)
[2024-10-15 15:07] LABS: Anion Gap 6 (5-15); Carbon Dioxide 30 mmol/L (20-31); Potassium 3.8 mmol/L (3.5-5.1)
[2024-10-15 15:13] LABS: BUN/Creatinine Ratio 13.8 (10.0-20.0); Blood Urea Nitrogen 11 mg/dL (9-23)
[2024-10-15 15:19] LABS: Calcium 10.5 mg/dL (8.7-10.4); Chloride 98 mmol/L (98-107); Glucose 117 mg/dL (74-106); Sodium 134 mmol/L (136-145)
[2024-10-15 17:51] LABS: Urine Bacteria None Seen /hpf (None Seen)
[2024-10-15 18:28] LABS: Urine Blood Negative /uL (Negative); Urine Budding Yeast FEW /hpf (None Seen); Urine Clarity Turbid (Clear); Urine Color Light-Yellow (Yellow); Urine Protein, UAD Negative (Negative); Urine Specific Gravity 1.012 (1.001-1.035); Urine Squamous Epithelial Cell FEW /hpf (<5); Urine Urobilinogen Normal (Negative); Urine WBC 100 /HPF (0-5); Urine WBC Clumps PRESENT /hpf (None Seen); Urine pH 6.5 (5.0-9.0)
[2024-10-15 18:46] VITALS: PULSE 75; RESP 16; O2SAT 97
[2024-10-15] MEDS ORDERED: NITROGLYCERIN 0.4 MG SL TAB SL PRN (23:00)
[2024-10-15] MEDS ORDERED: MORPHINE SULFATE INJ 2 MG/ml SYRG IV PRN (23:00)
[2024-10-15] MEDS ORDERED: hydrOXYzine HCL 10 MG TAB PO STA (23:01)
[2024-10-15] MEDS ORDERED: traZODone HCL 50 MG TAB PO ONE (23:15)
[2024-10-15] MEDS ORDERED: FLUoxetine HCL 10 MG CAP PO SCH (23:15)
[2024-10-15] MEDS ORDERED: APIXABAN 2.5 MG TAB PO SCH (23:15)
[2024-10-15] MEDS: cefTRIAXone 1GM/50ML D5W 50 ML IV ONE (23:34)
[2024-10-15 23:57] LABS: Alanine Aminotransferase 16 U/L (7-40); Albumin 4.6 g/dL (3.2-4.8); Alkaline Phosphatase 95 U/L (46-116); Anion Gap 6 (5-15); Aspartate Aminotransferase 15 U/L (13-40); BUN/Creatinine Ratio 13.6 (10.0-20.0); Blood Urea Nitrogen 11 mg/dL (9-23); Carbon Dioxide 26 mmol/L (20-31); Chloride 101 mmol/L (98-107)
[2024-10-15 23:58] LABS: Bilirubin, Total 0.5 mg/dL (0.2-1.0)
[2024-10-16] VITALS (8 sets, daily range): BP systolic 128–146; BP diastolic 58–70; PULSE 62–77; RESP 15–18; TEMP 97.4–98; O2SAT 96–100
[2024-10-16] LABS: Glucose 141 mg/dL (74-106); Potassium 3.3 mmol/L (3.5-5.1); Sodium 133 mmol/L (136-145)
[2024-10-16] MEDS: LACTATED RINGER'S 500 ML IV ONE (00:58)
[2024-10-16] MEDS: LACTATED RINGER'S 1,000 ML IV SCH (00:59)
[2024-10-16] MEDS: cefTRIAXone 2GM/50ML D5W 50 ML IV ONE (01:28)
[2024-10-16] MEDS: ACETAMINOPHEN 325 MG TAB PO PRN (01:42)
[2024-10-16] MEDS: RIVAROXABAN 15 MG TAB PO SCH (01:50)
[2024-10-16] MEDS: LACTATED RINGER'S 1,000 ML IV ONE (04:21)
[2024-10-16] MEDS: POTASSIUM EFFERVESENT TAB 25 MEQ PO ONE (05:12)
--- NOTE | 2024-10-16 06:15 | DVHHPRES ---
History of Present Illness Resident Creating Document: REE RAIN RESIDENT History of Present Illness Ms. Garcia, a 83-year-old female with a history of cerebrovascular accident (CVA), hypertension (HTN), hyperlipidemia (HLD), atrial fibrillation (A-Fib) on xarelto, diabetes mellitus (DM) and peptic ulcer disease (PUD) presents to the emergency department with high blood pressure in 180s noted at home, left ear pain, and ringing for the past two days. She reports new dizziness starting today but denies weakness, headache, chest pain, or shortness of breath. She has surgical history of , right foot, hysterectomy and tonsillectomy, and denies any gynecological complications. She is a lifetime non-smoker, denies alcohol use except rare occasions and drug use, and lives at home by herself, independent at baseline and has canes to support herself at times. PCP Dr. Huff, previously followed Dr. Palomino as radiology aide, waiting for outpatient follow up with Dr. Khalil. Past Medical History AFIB, CVA, DM, High Lipids, HTN, PUD Past Surgical History Hysterectomy, Tonsillectomy right foot Family History: Cancer, DM, Hypertension, Other (Noncontributory to presenting symptoms) Smoke: No ALCOHOL: rare Drugs: None Lives: Alone (In her own home) Domestic Violence: Neg Review of Systems Constitutional: No: Fever, Chills, Sweats, Weakness, Malaise, Other Eyes: No: Pain, Vision change, Conjunctivae inflammation, Eyelid inflammation, Other, Redness ENT: Ear pain; No: Ear discharge, Nose pain, Nose discharge, Nose congestion, Mouth pain, Mouth swelling, Throat pain, Throat swelling, Other Respiratory: No: Cough, Dry, Shortness of breath, SOB with excertion, Wheezing, Hemoptysis, Pleuritic Pain, Sputum, Wheezing, Other Cardiovascular: No: Chest Pain, Palpitations, Orthopnea, Paroxysmal Noc. Dyspnea, Edema, Other Gastrointestinal: No: Nausea, Vomiting, Abdominal Pain, Diarrhea, Constipation, Melena, Hematochezia, Other Genitourinary: No Dysuria, No Frequency, No Incontinence, No Hematuria, No Retention, No Other Musculoskeletal: back pain; No: other, neck pain, shoulder pain, arm pain, hand pain, leg pain, foot pain Skin: No: Rash, Lesions, Jaundice, Bruising, Other Neurological: No: Weakness, Numbness, Incoordination, Change in speech, Confusion, Seizures, Other Allergies: Coded Allergies: Famotidine (Verified Allergy, Unknown, 01/11/22) Pantoprazole (Unverified Allergy, Unknown, 04/08/14) Penicillins (Unverified Allergy, Unknown, 04/08/14) Rabeprazole (Unverified Allergy, Unknown, 04/08/14) Ranitidine (Verified Allergy, Unknown, 01/11/22) Sulfa Antibiotics (Unverified Allergy, Unknown, 04/08/14) Medications Current Medications Medications Dose Ordered Sig/Catherine Route Start Time Stop Time Status Last Admin Dose Admin Nitroglycerin 0.4 mg Q5MINP PRN SL 10/15/24 23:00 Morphine Sulfate 2 mg Q30M PRN IV 10/15/24 23:00 Lidocaine 1 patch DAILY TOP 10/16/24 10:00 Lactated Ringer's 1,000 ml @ 100 mls/hr Q10H IV 10/16/24 00:30 10/16/24 00:59 100 MLS/HR Acetaminophen 650 mg Q6HP PRN PO 10/16/24 01:30 10/16/24 01:42 650 MG Rivaroxaban 20 mg QPM PO 10/16/24 18:00 Ceftriaxone Sodium 50 ml @ 100 mls/hr DAILY@09 IV 10/16/24 09:00 UNV Exam Vital Signs Vital Signs Date Time Temp Pulse Resp B/P (MAP) Pulse Ox O2 Delivery O2 Flow Rate FiO2 10/16/24 05:00 97.4 62 18 136/64 (88) 100 97.4 10/16/24 02:35 Room Air* 0 21 General Appearance: Alert, Oriented X3, Cooperative, No acute distress HEENT: Atraumatic, PERRLA, EOMI, Other (dry mucosa, low turger ) Respiratory: Clear to auscultation, Normal air movement Cardiovascular: Regular rate, Normal S1, Normal S2, No murmurs, Gallops, Rubs Abdominal: Normal bowel sounds, Soft, No tenderness, No hepatospenomegaly, No masses Extremities: No clubbing, No cyanosis, No edema, Normal pulses, No tenderness/swelling, Other Skin: No rashes, No breakdown, No significant lesion Neuro: Normal speech, Strength at 5/5 X4 ext, Normal tone, Sensation intact, Cranial nerves 3-12 NL, Reflexes 2+, Other (Extremely hard of hearing specially on the right side. Gait unstable, patient usually uses cane which she did not bring, on wheelchair with assist for movement) Psych/Mental Status: Mental status NL, Mood NL Labs/Xrays Labs Test 10/15/24 23:20 10/15/24 17:50 10/15/24 14:38 10/15/24 14:23 Range/Units Sodium Level 133 L 136-145 mmol/L Potassium Level 3.3 L 3.5-5.1 mmol/L Chloride Level 101 98-107 mmol/L Carbon Dioxide Level 26 20-31 mmol/L Anion Gap 6 5-15 Blood Urea Nitrogen 11 9-23 mg/dL Creatinine 0.81 0.550-1.02 mg/dL Glomerular Filtration Rate Calc 71 >90 mL/min BUN/Creatinine Ratio 13.6 10.0-20.0 Serum Glucose 141 H 74-106 mg/dL Calcium Level 10.0 8.7-10.4 mg/dL Total Bilirubin 0.5 0.2-1.0 mg/dL Aspartate Amino Transferase (AST) 15 13-40 U/L Alanine Aminotransferase (ALT) 16 7-40 U/L Alkaline Phosphatase 95 46-116 U/L Total Protein 7.0 5.7-8.2 g/dL Albumin 4.6 3.2-4.8 g/dL Urine Color Light-yellow Yellow Urine Clarity Turbid H Clear Urine pH 6.5 5.0-9.0 Urine Specific [place] 1.012 1.001-1.035 Urine Protein Negative Negative Urine Ketones Negative Negative Urine Blood Negative Negative /uL Urine Nitrite 2+ H Negative Urine Bilirubin Negative Negative Urine Urobilinogen Normal Negative mg/dL Urine Leukocyte Esterase 3+ Negative /uL Urine RBC 2 0 - 4 /hpf Urine WBC Clumps Present None Seen /hpf Urine Microscopic WBC 100 H 0-5 /HPF Urine Squamous Epithelial Cells Few <5 /hpf Urine Bacteria None seen None Seen /hpf Urine Yeast (Budding) Few None Seen /hpf Urine Glucose Normal Normal mg/dL White Blood Count 5.6 4.4-10.8 10^3/uL Red Blood Count 4.55 4.0-5.20 10^6/uL Hemoglobin 13.9 12.2-16.2 g/dL Hematocrit 40.8 36.0-46.0 % Mean Corpuscular Volume 89.6 80.0-100.0 fL Mean Corpuscular Hemoglobin 30.5 28.0-32.0 pg Mean Corpuscular Hemoglobin Concent 34.0 32.0-36.0 g/dL Red Cell Distribution Width 13.6 11.8-14.3 % Platelet Count 212 140-450 10^3/uL Mean Platelet Volume 7.9 6.9-10.8 fL Neutrophils (%) (Auto) 63.7 37.0-80.0 % Lymphocytes (%) (Auto) 29.6 10.0-50.0 % Monocytes (%) (Auto) 4.6 0.0-12.0 % Eosinophils (%) (Auto) 1.6 0.0-7.0 % Basophils (%) (Auto) 0.5 0.0-2.0 % Neutrophils # (Auto) 3.5 1.6-8.6 10 ^3/uL Lymphocytes # (Auto) 1.6 0.4-5.4 10 ^3/uL Monocytes # (Auto) 0.3 0-1.3 10 ^3/uL Eosinophils # (Auto) 0.1 0-0.8 10 ^3/uL Basophils # (Auto) 0 0-0.2 10 ^3/uL Nucleated Red Blood Cells 0.1 % POC Glucose 115 H 70-106 mg/dl Assessment/Plan Assessment/Plan #urinary tract infection: noted in UA, nonspecific symptoms, no signs of sepsis, urine culture and blood culture sent, IV ceftriaxone to continue, when appropriate switch to oral antibiotics. #Presyncope: Dizziness, subjective lightheadedness, clinically dehydrated, fall precautions, fluid challenge, TSH b12, PT eval and orthostatic vitals, 12 lead EKG, ECHO TTE. Previous hisotry of vertigo. as needed meclizine 25 tid to start if all tests negative. # uncontrolled: essential HTN: She is on valsartan 80 mg tab b.i.d. daily. Patient is dizzy, hold it for now , given age more liberal approach with target blood pressure of 140/90 or below. Continue ambulatory monitoring. 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 Outpatient ENT follow up and hearing aids might be helpful. #Paroxysmal A-FIB patient is on Xarelto: continue home Xarelto 20 mg daily, target rate 110 or below as per RACE II trial. Noted normal sinus rhythm. If tachycardic will consider maikel blockers with metoprolol tartrate 25 mg p.o. b.i.d.. #History of prior stroke: no residual deficit noted. CT head negative, detailed neurological examination finds no focal neurological deficits or cranial nerve deficit. Patient is not very stable in terms of walking without support, deferred gait testing. Mild chronic microvascular ischemic disease in the periventricular and deep white matter. Old lacunar infarct in the right basal ganglia/anterior internal capsule. #mixed hyperlipidemia: Atorvastatin 40 mg daily to continue. #osteoarthritis: as needed Tylenol, s/p Stephen-chi therapy, check vitamin D3 if low continue supplementation. #known osteopenia: Physical examination reveals no possible joint fracture. #low back pain: Likely due to above continue as needed lidocaine 5% patch at low back. Physical therapy might help. #Spinal arthropathy: Severe facet arthropathy and prominent uncovertebral spurring at C3-C4 through C7-T1 with mild to moderate bilateral neural foraminal stenosis. Mild discogenic disease at C5-C6 and C6-C7. #history of diabetes mellitus type 2: Last HbA1c normalized. Continue cardiac diet. No need of SSI #hypokalemia, mild: 3.3 supplemented follow daily labs. #PUD/GERD: Previous history of GERD, pending EGD, follows , as per her recent colonoscopy was negative. Noted allergic to famotidine, ranitidine, pantoprazole and rabeprazole/ Avoid NSAIDs and aspirin. As needed Tums. #Known HFpEF/hypertensive heart disease: There is a grade 1 diastolic dysfunction noted previously repeat echo pending. #Normal Grief: Patient noted losing multiple family members including 2 sons and within a year. Was tearful but denies any suicidal or homicidal ideation. Bedside counseling done and emotional support provided. #right lower lobe nodule: measuring up to 5 mm, outpatient follow up. #Atherosclerotic vascular disease/ Aortic vascular calcifications: No evidence for hemodynamically significant stenosis or occlusion in carotid ultrasound in 2020. #Surgical History of Hysterectomy #Surgical History of Tonsillectomy #Surgical History on right foot arch Code status: Full code, discussed with the bedside over 39 minutes. Care planning consists of chart review, bedside evaluation physical exam and care planning with formulation of medical planning. Patient is agreeable to the hospital admission and medical management. Discussed with Dr. Darling. Plan discussed with: Patient, Other (primary team, RN) My Orders Orders - REE RAIN RESIDENT Procedure Category Date Status Time Admit ADMIT 10/15/24 Transmitted 22:56 Nitroglycerin PHA 10/15/24 In Process Sublingual (Ntrostat 23:00 Morphine Sulfate PHA 10/15/24 In Process Injection 23:00 Oxygen By Nasal RT 10/15/24 Transmitted Cannula 22:56 Stat Ekg For Chest EMILY 10/15/24 In Process Pain 22:56 Notify Md Of Changes EMILY 10/15/24 In Process From Base 22:56 Getterer For EMILY 10/15/24 In Process 24 Hours 22:56 Emergency Dysrhythmia EMILY 10/15/24 In Process Protocol 22:56 Rhythm Strips Once EMILY 10/15/24 In Process Every Shift 22:56 Cardiac DIET 10/16/24 Transmitted Diet-2gna,Lofat,Lochol Breakfast Urine Bacterial PAYAM 10/15/24 In Process Culture 23:09 Blood Culture PAYAM 10/15/24 In Process 23:09 Hi Prothrombin W Inr HDVI 10/15/24 Transmitted In Clinic 23:11 Lidocaine 5% Topical PHA 10/16/24 In Process Patch (Lidoderm 5% 10:00 Lactated Ringer's PHA 10/16/24 In Process 00:30 Acetaminophen Tablet PHA 10/16/24 In Process (Tylenol Tablet) 01:30 * Raimann Machine Operator CONS 10/16/24 Transmitted Consult 03:18 Pt Request For Service PT 10/16/24 Logged 05:29 Thyroid Stimulating LAB 10/16/24 Logged Hormone 05:29 Vitamin B12 LAB 10/16/24 Logged 05:29 Echo 2d Mode Cardiac US 10/16/24 Logged DOP 05:29 Vitamin D, 25-Hydroxy LAB 10/16/24 Logged 05:29 Complete Blood Count LAB 10/16/24 Logged 05:29 Comprehensive LAB 10/16/24 Logged Metabolic Panel 05:29 Rivaroxaban Tablet PHA 10/16/24 In Process (Xarelto Tablet) 18:00 Ceftriaxone 1gm/50ml PHA 10/16/24 In Process D5w (Rocephin) 21:00 Ekg On Admit EMILY 10/16/24 In Process 05:51 Date of Service: Oct 15, 2024 Billing Provider: TRUMAN DARLING MD Common Visit Codes: 40535-ZNKQSQN INP/OBS CARE (HIGH) Secondary Visit Codes: 50521-EBEHIIMR CARE PLAN 30 MINUTES REE RAIN RESIDENT Oct 16, 2024 06:15 TRUMAN DARLING MD Oct 20, 2024 12:21
[2024-10-16 07:06] LABS: Basophils # (auto) 0 10 ^3/uL (0-0.2); Basophils % (auto) 0.4 % (0.0-2.0); Eosinophils # (auto) 0.2 10 ^3/uL (0-0.8); Eosinophils % (auto) 3.2 % (0.0-7.0); Hemoglobin 13.2 g/dL (12.2-16.2); Lymphocytes # (auto) 2.4 10 ^3/uL (0.4-5.4); Mean Corpuscular Hemoglobin 30.8 pg (28.0-32.0); Mean Corpuscular Hgb Conc. 34.7 g/dL (32.0-36.0); Mean Corpuscular Volume 88.8 fL (80.0-100.0); Monocytes # (auto) 0.4 10 ^3/uL (0-1.3); Monocytes % (auto) 6.3 % (0.0-12.0); Neutrophils # (auto) 3.1 10 ^3/uL (1.6-8.6); Neutrophils % (auto) 51.1 % (37.0-80.0); Platelet Count (auto) 201 10^3/uL (140-450); Red Blood Cells 4.28 10^6/uL (4.0-5.20); Red Cell Distribution Width 13.6 % (11.8-14.3)
[2024-10-16 07:27] LABS: Alanine Aminotransferase 17 U/L (7-40); Albumin 4.4 g/dL (3.2-4.8); Alkaline Phosphatase 95 U/L (46-116); Anion Gap 6 (5-15); BUN/Creatinine Ratio 17.5 (10.0-20.0); Blood Urea Nitrogen 11 mg/dL (9-23); Calcium 10.3 mg/dL (8.7-10.4); Carbon Dioxide 29 mmol/L (20-31); Glucose 89 mg/dL (74-106); Potassium 3.9 mmol/L (3.5-5.1); Total Protein 6.7 g/dL (5.7-8.2)
[2024-10-16 07:28] LABS: Aspartate Aminotransferase 17 U/L (13-40); Bilirubin, Total 0.5 mg/dL (0.2-1.0)
[2024-10-16 07:30] LABS: Chloride 98 mmol/L (98-107); Sodium 133 mmol/L (136-145)
[2024-10-16] MEDS: LIDOCAINE 5% TOPICAL PATCH TOP SCH (09:46)
[2024-10-16] MEDS ORDERED: ASPirin-EC 81 mg tab PO SCH (10:00)
--- NOTE | 2024-10-16 10:28 | ECG ---
[facility] Test Date: 2024-10-15 Test Time: 14:21:07 Pat Name: RONAK RITTER Department: ER Room: [facility] Gender: F Extract Mixer: DARRYL : 1940 Requested By: HEBER RICHARD Order Number: [id number] Reading MD: Javier Khalil Measurements Intervals Plain Rate: 74 P: 58 IN: 176 QRS: 40 QRSD: 74 T: 48 QT: 387 QTc: 430 Interpretive Statements Sinus rhythm Electronically Signed On 10-16-2024 18:48:42 PDT by Javier Khalil Please click the below link to view image of tracing.
--- NOTE | 2024-10-16 17:14 | DVHPNRES ---
Progress Note Date Seen: Oct 16, 2024 Resident Creating Document: BRAYAN MATAMOROS RESIDENT Medical Necessity Reason Pt with a Central, PICC or Fol: No Subjective Review of Systems No new complaints Patient complaining of mild left ear fullness and hearing loss. No fever, no abdominal pain, no dysuria Objective vital signs Vital Sign Date Time Temp Pulse Resp B/P (MAP) Pulse Ox O2 Delivery O2 Flow Rate FiO2 10/16/24 12:30 98.0 66 15 128/65 (86) 98 98.0 10/16/24 08:00 Room Air* 0 21 Total Intake and Output 10/15/24 10/15/24 10/16/24 15:00 23:00 07:00 Intake Total 550 ml Balance 550 ml medications Current Medications Medications Dose Ordered Sig/Catherine Route Start Time Stop Time Status Last Admin Dose Admin Nitroglycerin 0.4 mg Q5MINP PRN SL 10/15/24 23:00 Morphine Sulfate 2 mg Q30M PRN IV 10/15/24 23:00 Lidocaine 1 patch DAILY TOP 10/16/24 10:00 10/16/24 09:46 1 PATCH Lactated Ringer's 1,000 ml @ 100 mls/hr Q10H IV 10/16/24 00:30 10/16/24 00:59 100 MLS/HR Acetaminophen 650 mg Q6HP PRN PO 10/16/24 01:30 10/16/24 14:12 650 MG Rivaroxaban 20 mg QPM PO 10/16/24 18:00 Ceftriaxone Sodium 50 ml @ 100 mls/hr DAILY@2100 IV 10/16/24 21:00 Examination General Appearance: Cooperative. Well developed. Well nourished. NAD Head Exam: Normal inspection Neck Exam: Normal inspection. Non-tender. Normal alignment Pulmonary/Respiratory: Chest non-tender. Clear bilateral breath sounds Cardiovascular/Chest: Regular rate and rhythm. No murmurs. No JVD. Peripheral Pulses: 2+ Radial (R). 2+ Radial (L). 2+ Pedal (R). 2+ Pedal (L) Abdominal Exam: Normal bowel sounds. Soft. Nontender. No hepatospenomegaly. No masses Ankle Exam: Negative ankle edema Lower extremities: Negative lower extremity edema Neuro/Mental Status: A&O x4. Coherent Thoughts/Psych: Normal thought pattern. Appropriate mood and affect. Good judgement and insight Appearance: In no acute distress Skin Exam: Normal inspection. Normal color. Warm. Dry laboratory and microbiology Laboratory Tests 10/16/24 06:41 Test 10/16/24 06:41 Range/Units Serum Glucose 89 74-106 mg/dL Problem List/Assessment/Plan Problem List/Assessment/Plan urinary tract infection: . Presyncope uncontrolled: essential HTN presbycusis right ear more than left: Paroxysmal A-FIB patient is on Xarelto. History of prior stroke hyperlipidemia: history of diabetes mellitus type 2 PUD/GERD: Known chronic HFpEF/hypertensive heart disease right lower lobe nodule Atherosclerotic vascular disease/ Aortic vascular calcifications Surgical History of Hysterectomy Surgical History of Tonsillectomy Surgical History on right foot arch Plan/recommendation -continue IV ceftriaxone for urinary tract infection, pending urinary culture. -continue IV LR 100 mL/hour -pending echocardiogram results related to dizziness, unremarkable CT scan of head. -continue rivaroxaban home medication 20 mg q.p.m. not on any antiarrhythmic medication. -diabetic diet -PUD prophylaxis not given, given allergy to famotidine ranitidine, pantoprazole, rabeprazole. Avoid aspirin and NSAIDs. Possible discharge tomorrow a.m. with oral antibiotic for UTI. Code status discussed greater than 22 minutes, full code status. Plan discussed with Dr. Payne Plan discussed with: Patient BRAYAN MATAMOROS RESIDENT Oct 16, 2024 17:14
[2024-10-16] MEDS: RIVAROXABAN 20 MG TAB PO SCH (17:30)
[2024-10-16] MEDS ORDERED: RIVAROXABAN 15 MG TAB PO SCH (18:00)
[2024-10-16] MEDS: cefTRIAXone 1GM/50ML D5W 50 ML IV SCH (20:34)
[2024-10-16] MEDS ORDERED: traZODone HCL 50 MG TAB PO SCH (22:00)
[2024-10-17] VITALS (8 sets, daily range): BP systolic 116–146; BP diastolic 59–73; PULSE 67–79; RESP 15–19; TEMP 97.2–98; O2SAT 95–98
[2024-10-17 06:08] LABS: Basophils # (auto) 0 10 ^3/uL (0-0.2); Basophils % (auto) 0.6 % (0.0-2.0); Eosinophils # (auto) 0.2 10 ^3/uL (0-0.8); Hematocrit 33.5 % (36.0-46.0); Hemoglobin 11.8 g/dL (12.2-16.2); Lymphocytes # (auto) 2.1 10 ^3/uL (0.4-5.4); Mean Corpuscular Hemoglobin 31.5 pg (28.0-32.0); Mean Corpuscular Hgb Conc. 35.3 g/dL (32.0-36.0); Mean Corpuscular Volume 89.3 fL (80.0-100.0); Monocytes # (auto) 0.3 10 ^3/uL (0-1.3); Monocytes % (auto) 7.6 % (0.0-12.0); Neutrophils # (auto) 1.7 10 ^3/uL (1.6-8.6); Neutrophils % (auto) 39.8 % (37.0-80.0); Nucleated Red Blood Cells % 0.1 %; Platelet Count (auto) 178 10^3/uL (140-450); Red Blood Cells 3.75 10^6/uL (4.0-5.20); Red Cell Distribution Width 13.2 % (11.8-14.3); White Blood Cell 4.4 10^3/uL (4.4-10.8)
[2024-10-17 06:25] LABS: Anion Gap 7 (5-15); Carbon Dioxide 25 mmol/L (20-31); Chloride 102 mmol/L (98-107)
[2024-10-17 06:26] LABS: Calcium 9.6 mg/dL (8.7-10.4)
[2024-10-17 06:31] LABS: BUN/Creatinine Ratio 18.5 (10.0-20.0); Blood Urea Nitrogen 10 mg/dL (9-23)
[2024-10-17 06:35] LABS: Glucose 106 mg/dL (74-106); Potassium 3.4 mmol/L (3.5-5.1); Sodium 134 mmol/L (136-145)
[2024-10-17] MEDS: DEXTROSE (50%) 50ML SYRG IV ONE (10:30)
[2024-10-17] MEDS: ACCU-CHEK COMFORT CURVE STRIP VI ONE (10:30)
[2024-10-17] MEDS ORDERED: CALCIUM CARB 500 MG CHEW TAB PO PRN (10:30)
[2024-10-17] MEDS: InsuLIN REG 1unit/0.01ml Soln (100units/ml) SC ONE (10:30)
[2024-10-17] MEDS: POTASSIUM EFFERVESENT TAB 25 MEQ PO ONE (11:30)
[2024-10-17] MEDS ORDERED: AMPICILLIN & SULBACTAM SODIUM 3 GM in SODIUM CHL 0.9% 100 ML IV SCH (13:45)
--- NOTE | 2024-10-17 14:10 | MEDREC ---
[facility] Intervention Section I [facility] Intervention: Review courses of therapy (SPOKE TO DR. TRUJILLO VIA PHONE REGARDING TO PENICILLINS AND SULFA ANTIBIOTICS ALLERGY (WITH UNKNOWN REACTIONS). AWARED AND OKAYED TO DISCONTINUE UNASYN AND RESTART CEFTRIAXONE) CHELSEY HAAS Oct 17, 2024 14:10
--- NOTE | 2024-10-17 15:26 | DVHSR ---
APPROVED REPORT EXAM: Two-dimensional and M-mode echocardiogram with Doppler and color Doppler. Blood Pressure: 136/64 mmHg INDICATION presyncope an a fib RISK FACTORS Obesity: Height: 5'5, Weight: 156 DIMENSIONS LVDd4.4 (3.8-5.7cm)LA (2D)3.9 (1.9-4.0cm)Aortic Root3.2 (2.0-3.7cm) LVDs3.1 (2.5-4.0cm)LA (MM) (1.9-4.0cm)Aortic Cusp Exc1.2 (1.5-2.0cm) EF (%) 55.0 (55-70%)Rt. Atrium3.3 (1.9-4.0cm)Asc. Aorta cm IVSd0.8 (0.7-1.1cm)RV (D)4.2 (1.8-2.4cm) PWd0.9 (0.7-1.1cm) Mitral Valve MitralMitral Stenosis E wave0.81m/sMV Mean GR.mmHg A wave0.95m/sMV Peak GR.48mmHg E/A ratio0.92D MVAcm2 DECEL [id number] 1/2 Timems Aortic Valve Aortic ValveAortic Stenosis V10.99m/Diandra Mean GR.3mmHg V21.12m/Diandra Peak GR.5mmHg LVOT Diameter2.1 (1.8-2.4cm)Doppler AVA3.06cm2 Pulmonic Valve V20.71m/s Tricuspid Valve TR Velocity2.27m/s [id number] Conclusion Sinus rhythm. Left atrial enlargement. Concentric LVH. Sigmoid septum noted. Mild dilation of the sinuses of Valsalva. Mild mitral annular calcification. Left ventricular function appears to be borderline at about 50%. Normal RV function. Dopplers unremarkable. No pericardial effusion masses or vegetations.
[2024-10-17] MEDS: FLUTICASONE PROP NASAL SPR 0.05 % (50MCG) 16GM EACHNOSTRI ONE (16:45)
--- NOTE | 2024-10-17 16:53 | DVHPNRES ---
Progress Note Date Seen: Oct 17, 2024 Resident Creating Document: MARCUS TRUJILLO RESIDENT Medical Necessity Reason Pt with a Central, PICC or Fol: No Subjective Review of Systems Mikaela Garcia is a 83-year-old female patient who presents to ED with chief complaint of year fullness associated with dizziness and hypertension (systolic blood pressure of 180 mmHg) two days before her admission. Denies palpitation, syncope, weakness, headache, chest pain, dyspnea, nausea, vomiting, diarrhea, unintentional weight loss, recent travel, sick contacts and motor or sensory deficits. Past Medical History: Hypertension, dyslipidemia, diabetes, Paroxysmal atrial fibrillation (chads Vasc 6/ has bled 3), CVA, DM, High Lipids, HTN, PUD Surgical History: Hysterectomy, Tonsillectomy, right foot Family History: Cancer (lung cancer in and colon cancer son), DM, Hypertension Social history: Lives alone in her home. Uses a cane to mobilize at times. Denies current tobacco, alcohol and other drug abuse Allergies: Famotidine, pantoprazole, penicillin, Luis omeprazole, ranitidine, sulfa antibiotics Home medication: Amlodipine 2.5 mg p.o. daily, apixaban 2.5 mg p.o. b.i.d., ascorbic acid 500 mg p.o. daily, aspirin 81 mg p.o. daily, atorvastatin 40 mg p.o. daily, chlorthalidone 25 mg p.o. daily, vitamin-D 2000 units p.o. daily, Benadryl p.r.n., esomeprazole 40 mg p.o. daily, ezetimibe 10 mg p.o. daily, fluoxetine 10 mg p.o. daily, hydrochlorothiazide 12.5 mg p.o. daily, losartan 25 mg p.o. daily metoprolol 25 mg p.o. b.i.d., trazodone 50 mg p.o. daily, PCP is Dr. Huff Patient seen and examined at bedside. Is complaining of progressive fullness sensation on bilateral ears predominantly on left side with associated difficulty hearing. Also complains of nasal congestion. Started treating sinusitis with decongestants and IV antibiotics (patient is allergic to penicillins, we will continue with ceftriaxone). Objective vital signs Vital Sign Date Time Temp Pulse Resp B/P (MAP) Pulse Ox O2 Delivery O2 Flow Rate FiO2 4/5/25 12:30 97.8 69 15 145/60 (88) 98 97.8 10/17/24 08:00 Room Air* 0 21 Total Intake and Output 10/16/24 10/16/24 10/17/24 15:00 23:00 07:00 Intake Total 240 ml 776 ml 1060 ml Balance 240 ml 776 ml 1060 ml medications Current Medications Medications Dose Ordered Sig/Catherine Route Start Time Stop Time Status Last Admin Dose Admin Lidocaine 1 patch DAILY TOP 10/16/24 10:00 10/17/24 10:17 1 PATCH Lactated Ringer's 1,000 ml @ 100 mls/hr Q10H IV 10/16/24 00:30 10/17/24 13:38 100 MLS/HR Acetaminophen 650 mg Q6HP PRN PO 10/16/24 01:30 10/17/24 10:18 650 MG Rivaroxaban 20 mg QPM PO 10/16/24 18:00 10/16/24 17:30 20 MG Calcium Carbonate 500 mg QIDPRN PRN PO 10/17/24 10:30 Fluticasone Propionate 50 mcg Q12HR EACHNOSTRI 10/17/24 22:00 Ceftriaxone Sodium 50 ml @ 100 mls/hr DAILY@2100 IV 10/17/24 21:00 Melatonin 10 mg HS PO 10/17/24 22:00 Examination Patient lying in bed, in no acute distress General: Lucid, afebrile, mucosae are moist. Tenderness on palpation of frontal and maxillary sinuses Cardiovascular: Normal S1 and S2. No murmurs, gallops or rubs Respiratory: Normal ventilation mechanics. Clear lung sounds on auscultation Abdomen: Soft, nontender, no organomegaly, normal bowel sounds MSK/skin: Mobilizes 4 limbs. Skin is dry and warm Neurological: Oriented in 3 spheres. No motor no sensitive deficits. Pupils are isocoric and reactive laboratory and microbiology Laboratory Tests 10/17/24 05:26 Test 10/17/24 05:26 Range/Units Serum Glucose 106 74-106 mg/dL Microbiology Date/Time Source Procedure Growth Status 10/16/24 05:00 Voided Urine Urine Culture - Preliminary Resulted 10/15/24 23:20 Blood Blood Culture - Preliminary NO GROWTH AFTER 24 HOURS OF INCUBATION. Resulted Problem List/Assessment/Plan Problem List/Assessment/Plan Assessment: UTI Sinusitis Presyncope Ruled out CVA Hypertensive urgency Paroxysmal atrial fibrillation (chads Vasc 6/ has bled 3) secondary hypercoagulability state History of CVA with no deficits Hyperlipidemia Diabetes mellitus type 2 - controlled (hemoglobin A1c 5.5%) PUD/GERD Chronic HFpEF/hypertensive heart disease - no exacerbation Hypokalemia Plan: Continue IV ceftriaxone for urinary tract infection, pending urinary culture. Continue IV LR 100 mL/hour Head CT with no acute intracranial abnormalities (has chronic lacunar changes) Completed echocardiogram: Left atrial enlargement, concentric LVH, sigmoid septum, borderline LVEF (50%), normal RV function Continue rivaroxaban home medication 20 mg q.p.m. PUD prophylaxis not given, given allergy to famotidine ranitidine, pantoprazole, rabeprazole. Avoid aspirin and NSAIDs. Tums p.r.n. Goals of care discussed with patient for over 18 minutes: Full code status Plan discussed with Dr. Payne, patient and nurses: Suspect auditory symptoms secondary to sinusitis, continue with empiric IV antibiotic and added Flonase. We will evaluate improvement of symptoms after 24 hours of treatment. Plan discussed with: Patient, Other (Nurses) My Orders My Orders Orders - MARCUS TRUJILLO Procedure Category Date Status Time Calcium Carbonate PHA 10/17/24 In Process (Tums) 10:30 Fluticasone Nasal PHA 10/17/24 In Process [place] (Flonase [place]) 22:00 Ceftriaxone 1gm/50ml PHA 10/17/24 In Process D5w (Rocephin) 21:00 Complete Blood Count LAB 10/18/24 Verified 04:00 Basic Metabolic Panel LAB 10/18/24 Verified 04:00 MARCUS TRUJILLO RESIDENT Oct 17, 2024 16:53
[2024-10-17] MEDS: cefTRIAXone 1GM/50ML D5W 50 ML IV SCH (20:13)
[2024-10-17] MEDS ORDERED: MELATONIN 5 MG TAB PO SCH (22:00)
[2024-10-17] MEDS: traZODone HCL 50 MG TAB PO ONE (22:13)
[2024-10-17] MEDS: FLUTICASONE PROP NASAL SPR 0.05 % (50MCG) 16GM EACHNOSTRI SCH (22:13)
[2024-10-18] VITALS (8 sets, daily range): BP systolic 129–162; BP diastolic 59–68; PULSE 64–85; RESP 17–20; TEMP 98–98.3; O2SAT 93–98
[2024-10-18 06:26] LABS: Basophils # (auto) 0 10 ^3/uL (0-0.2); Basophils % (auto) 0.5 % (0.0-2.0); Eosinophils # (auto) 0.2 10 ^3/uL (0-0.8); Eosinophils % (auto) 5.3 % (0.0-7.0); Hematocrit 35.5 % (36.0-46.0); Hemoglobin 12.1 g/dL (12.2-16.2); Lymphocytes # (auto) 2.1 10 ^3/uL (0.4-5.4); Lymphocytes % (auto) 44.1 % (10.0-50.0); Mean Corpuscular Hemoglobin 30.6 pg (28.0-32.0); Mean Corpuscular Volume 89.9 fL (80.0-100.0); Monocytes # (auto) 0.3 10 ^3/uL (0-1.3); Monocytes % (auto) 6.9 % (0.0-12.0); Neutrophils % (auto) 43.2 % (37.0-80.0); Nucleated Red Blood Cells % 0.3 %; Platelet Count (auto) 181 10^3/uL (140-450); Red Blood Cells 3.95 10^6/uL (4.0-5.20); Red Cell Distribution Width 13.2 % (11.8-14.3); White Blood Cell 4.6 10^3/uL (4.4-10.8)
[2024-10-18 06:35] LABS: Chloride 104 mmol/L (98-107); Potassium 3.5 mmol/L (3.5-5.1)
[2024-10-18 06:36] LABS: Anion Gap 5 (5-15); Carbon Dioxide 26 mmol/L (20-31)
[2024-10-18 06:37] LABS: Calcium 9.7 mg/dL (8.7-10.4)
[2024-10-18 06:40] LABS: Sodium 135 mmol/L (136-145)
[2024-10-18 06:41] LABS: Glucose 103 mg/dL (74-106)
[2024-10-18 06:42] LABS: BUN/Creatinine Ratio 14.5 (10.0-20.0); Blood Urea Nitrogen 8 mg/dL (9-23)
--- NOTE | 2024-10-18 15:45 | DVHPNRES ---
Progress Note Date Seen: Oct 18, 2024 Resident Creating Document: BRAYAN MATAMOROS RESIDENT Medical Necessity Reason Pt with a Central, PICC or Fol: No Subjective Review of Systems Mikaela Garcia is a 83-year-old female patient who presents to ED with chief complaint of year fullness associated with dizziness and hypertension (systolic blood pressure of 180 mmHg) two days before her admission. Denies palpitation, syncope, weakness, headache, chest pain, dyspnea, nausea, vomiting, diarrhea, unintentional weight loss, recent travel, sick contacts and motor or sensory deficits. Past Medical History: Hypertension, dyslipidemia, diabetes, Paroxysmal atrial fibrillation (chads Vasc 6/ has bled 3), CVA, DM, High Lipids, HTN, PUD Surgical History: Hysterectomy, Tonsillectomy, right foot Family History: Cancer (lung cancer in and colon cancer son), DM, Hypertension Social history: Lives alone in her home. Uses a cane to mobilize at times. Denies current tobacco, alcohol and other drug abuse Allergies: Famotidine, pantoprazole, penicillin, Luis omeprazole, ranitidine, sulfa antibiotics Home medication: Amlodipine 2.5 mg p.o. daily, apixaban 2.5 mg p.o. b.i.d., ascorbic acid 500 mg p.o. daily, aspirin 81 mg p.o. daily, atorvastatin 40 mg p.o. daily, chlorthalidone 25 mg p.o. daily, vitamin-D 2000 units p.o. daily, Benadryl p.r.n., esomeprazole 40 mg p.o. daily, ezetimibe 10 mg p.o. daily, fluoxetine 10 mg p.o. daily, hydrochlorothiazide 12.5 mg p.o. daily, losartan 25 mg p.o. daily metoprolol 25 mg p.o. b.i.d., trazodone 50 mg p.o. daily, PCP is Dr. Huff No new complains Objective vital signs Vital Sign Date Time Temp Pulse Resp B/P (MAP) Pulse Ox O2 Delivery O2 Flow Rate FiO2 10/18/24 13:00 98.2 67 18 162/67 (98) 96 98.2 10/18/24 08:00 Room Air* 0 21 Total Intake and Output 10/17/24 10/17/24 10/18/24 15:00 23:00 07:00 Intake Total 1790 ml 1026 ml 400 ml Balance 1790 ml 1026 ml 400 ml medications Current Medications Medications Dose Ordered Sig/Catherine Route Start Time Stop Time Status Last Admin Dose Admin Lidocaine 1 patch DAILY TOP 10/16/24 10:00 10/18/24 10:13 1 PATCH Lactated Ringer's 1,000 ml @ 100 mls/hr Q10H IV 10/16/24 00:30 10/18/24 02:30 100 MLS/HR Acetaminophen 650 mg Q6HP PRN PO 10/16/24 01:30 10/18/24 10:13 650 MG Rivaroxaban 20 mg QPM PO 10/16/24 18:00 10/17/24 18:15 20 MG Calcium Carbonate 500 mg QIDPRN PRN PO 10/17/24 10:30 Fluticasone Propionate 50 mcg Q12HR EACHNOSTRI 10/17/24 22:00 10/18/24 10:11 50 MCG Ceftriaxone Sodium 50 ml @ 100 mls/hr DAILY@2100 IV 10/17/24 21:00 10/17/24 20:13 100 MLS/HR Melatonin 10 mg HS PO 10/17/24 22:00 Cancel Examination General Appearance: Cooperative. Well developed. Well nourished. NAD Head Exam: Normal inspection Neck Exam: Normal inspection. Non-tender. Normal alignment Pulmonary/Respiratory: Chest non-tender. Clear bilateral breath sounds Cardiovascular/Chest: Regular rate and rhythm. No murmurs. No JVD. Peripheral Pulses: 2+ Radial (R). 2+ Radial (L). 2+ Pedal (R). 2+ Pedal (L) Abdominal Exam: Normal bowel sounds. Soft. Nontender. No hepatospenomegaly. No masses Ankle Exam: Negative ankle edema Lower extremities: Negative lower extremity edema Neuro/Mental Status: A&O x4. Coherent Thoughts/Psych: Normal thought pattern. Appropriate mood and affect. Good judgement and insight Appearance: In no acute distress Skin Exam: Normal inspection. Normal color. Warm. Dry laboratory and microbiology Laboratory Tests 10/18/24 05:53 Test 10/18/24 05:53 Range/Units Serum Glucose 103 74-106 mg/dL Microbiology Date/Time Source Procedure Growth Status 10/16/24 05:00 Voided Urine Urine Culture - Final Complete 10/15/24 23:20 Blood Blood Culture - Preliminary NO GROWTH AFTER 48 HOURS OF INCUBATION. Resulted Problem List/Assessment/Plan Problem List/Assessment/Plan urinary tract infection: . Presyncope uncontrolled: essential HTN presbycusis right ear more than left: Paroxysmal A-FIB patient is on Xarelto. History of prior stroke hyperlipidemia: history of diabetes mellitus type 2 PUD/GERD: Known chronic HFpEF/hypertensive heart disease right lower lobe nodule Atherosclerotic vascular disease/ Aortic vascular calcifications Surgical History of Hysterectomy Surgical History of Tonsillectomy Surgical History on right foot arch Plan/recommendation -continue IV ceftriaxone for urinary tract infection, pending urinary culture. -continue IV LR 100 mL/hour -pending echocardiogram results related to dizziness, unremarkable CT scan of head. -continue rivaroxaban home medication 20 mg q.p.m. not on any antiarrhythmic medication. -diabetic diet -PUD prophylaxis not given, given allergy to famotidine ranitidine, pantoprazole, rabeprazole. Avoid aspirin and NSAIDs. Code status discussed greater than 22 minutes, full code status. Plan discussed with: Patient, Other (RN) BRAYAN MATAMOROS RESIDENT Oct 18, 2024 15:45
[2024-10-18] MEDS ORDERED: hydrALAZINE HCL 20 MG/ML VL IV ONE (18:00)
[2024-10-19 01:00] VITALS: BP 131/57; PULSE 72; RESP 15; TEMP 97.9; O2SAT 95
[2024-10-19 05:00] VITALS: BP 143/67; PULSE 77; RESP 17; TEMP 97.8; O2SAT 95
[2024-10-19 07:15] LABS: Basophils # (auto) 0 10 ^3/uL (0-0.2); Basophils % (auto) 0.7 % (0.0-2.0); Eosinophils # (auto) 0.3 10 ^3/uL (0-0.8); Eosinophils % (auto) 5.3 % (0.0-7.0); Hematocrit 34.6 % (36.0-46.0); Hemoglobin 12.1 g/dL (12.2-16.2); Lymphocytes # (auto) 2.1 10 ^3/uL (0.4-5.4); Lymphocytes % (auto) 40.3 % (10.0-50.0); Mean Corpuscular Hemoglobin 31.5 pg (28.0-32.0); Mean Corpuscular Hgb Conc. 34.9 g/dL (32.0-36.0); Mean Corpuscular Volume 90.2 fL (80.0-100.0); Monocytes # (auto) 0.4 10 ^3/uL (0-1.3); Monocytes % (auto) 7.5 % (0.0-12.0); Neutrophils # (auto) 2.4 10 ^3/uL (1.6-8.6); Neutrophils % (auto) 46.2 % (37.0-80.0); Nucleated Red Blood Cells % 0.1 %; Platelet Count (auto) 182 10^3/uL (140-450); Red Blood Cells 3.83 10^6/uL (4.0-5.20); White Blood Cell 5.1 10^3/uL (4.4-10.8)
[2024-10-19 07:16] LABS: Chloride 103 mmol/L (98-107); Potassium 3.7 mmol/L (3.5-5.1)
[2024-10-19 07:17] LABS: Anion Gap 6 (5-15); Carbon Dioxide 26 mmol/L (20-31)
[2024-10-19 07:18] LABS: Calcium 9.6 mg/dL (8.7-10.4)
[2024-10-19 07:22] LABS: BUN/Creatinine Ratio 15.9 (10.0-20.0); Blood Urea Nitrogen 10 mg/dL (9-23); Glucose 101 mg/dL (74-106)
[2024-10-19 07:24] LABS: Sodium 135 mmol/L (136-145)
[2024-10-19 08:00] VITALS: PULSE 64; RESP 18; O2SAT 97
[2024-10-19 08:47] VITALS: BP 123/49; PULSE 63; RESP 18; TEMP 97.8; O2SAT 97
[2024-10-19] MEDS ORDERED: FLUT50SP EACHNOSTRI (11:28)
[2024-10-19 12:37] VITALS: TEMP 36.6
--- NOTE | 2024-10-19 13:27 | DVHDSRES ---
Discharge Summary Date of Admission Resident Creating Document: BRAYAN MATAMOROS RESIDENT Oct 15, 2024 at 22:56 Date of Discharge: Oct 19, 2024 Admitting Diagnosis UTI and left ear fullness Labs/Diagnostic Data: Laboratory Results Test 10/19/24 06:05 10/17/24 11:08 10/17/24 05:26 10/16/24 06:41 White Blood Count 5.1 10^3/uL (4.4-10.8) Red Blood Count 3.83 10^6/uL (4.0-5.20) Hemoglobin 12.1 g/dL (12.2-16.2) Hematocrit 34.6 % (36.0-46.0) Mean Corpuscular Volume 90.2 fL (80.0-100.0) Mean Corpuscular Hemoglobin 31.5 pg (28.0-32.0) Mean Corpuscular Hemoglobin Concent 34.9 g/dL (32.0-36.0) Red Cell Distribution Width 13.0 % (11.8-14.3) Platelet Count 182 10^3/uL (140-450) Mean Platelet Volume 7.9 fL (6.9-10.8) Neutrophils (%) (Auto) 46.2 % (37.0-80.0) Lymphocytes (%) (Auto) 40.3 % (10.0-50.0) Monocytes (%) (Auto) 7.5 % (0.0-12.0) Eosinophils (%) (Auto) 5.3 % (0.0-7.0) Basophils (%) (Auto) 0.7 % (0.0-2.0) Neutrophils # (Auto) 2.4 10 ^3/uL (1.6-8.6) Lymphocytes # (Auto) 2.1 10 ^3/uL (0.4-5.4) Monocytes # (Auto) 0.4 10 ^3/uL (0-1.3) Eosinophils # (Auto) 0.3 10 ^3/uL (0-0.8) Basophils # (Auto) 0 10 ^3/uL (0-0.2) Nucleated Red Blood Cells 0.1 % Sodium Level 135 mmol/L (136-145) Potassium Level 3.7 mmol/L (3.5-5.1) Chloride Level 103 mmol/L (98-107) Carbon Dioxide Level 26 mmol/L (20-31) Anion Gap 6 (5-15) Blood Urea Nitrogen 10 mg/dL (9-23) Creatinine 0.63 mg/dL (0.550-1.02) Glomerular Filtration Rate Calc 87 mL/min (>90) BUN/Creatinine Ratio 15.9 (10.0-20.0) Serum Glucose 101 mg/dL (74-106) Calcium Level 9.6 mg/dL (8.7-10.4) POC Glucose 98 mg/dl (70-106) Hemoglobin A1c 5.5 % A1C (<5.7) Total Bilirubin 0.5 mg/dL (0.2-1.0) Aspartate Amino Transferase (AST) 17 U/L (13-40) Alanine Aminotransferase (ALT) 17 U/L (7-40) Alkaline Phosphatase 95 U/L (46-116) Total Protein 6.7 g/dL (5.7-8.2) Albumin 4.4 g/dL (3.2-4.8) Vitamin B12 Level 1000 pg/mL (211-911) Vitamin D 25-Hydroxy 57.5 ng/mL (30.0-100) Thyroid Stimulating Hormone (TSH) 1.79 uIU/mL (0.55-4.78) Test 10/15/24 17:50 Urine Color Light-yellow (Yellow) Urine Clarity Turbid (Clear) Urine pH 6.5 (5.0-9.0) Urine Specific [place] 1.012 (1.001-1.035) Urine Protein Negative (Negative) Urine Ketones Negative (Negative) Urine Blood Negative /uL (Negative) Urine Nitrite 2+ (Negative) Urine Bilirubin Negative (Negative) Urine Urobilinogen Normal mg/dL (Negative) Urine Leukocyte Esterase 3+ /uL (Negative) Urine RBC 2 /hpf (0 - 4) Urine WBC Clumps Present /hpf (None Seen) Urine Microscopic WBC 100 /HPF (0-5) Urine Squamous Epithelial Cells Few /hpf (<5) Urine Bacteria None seen /hpf (None Seen) Urine Yeast (Budding) Few /hpf (None Seen) Urine Glucose Normal mg/dL (Normal) Other Laboratory Tests 10/19/24 06:05 Brief Hx & Hospital Course: Ms. Garcia, a 83-year-old female with a history of cerebrovascular accident (CVA), hypertension (HTN), hyperlipidemia (HLD), atrial fibrillation (A-Fib) on xarelto, diabetes mellitus (DM) and peptic ulcer disease (PUD) presents to the emergency department with high blood pressure in 180s noted at home, left ear pain, and ringing for the past two days. She reports new dizziness starting today but denies weakness, headache, chest pain, or shortness of breath. Patient was evaluated by presyncope with 12 lead EKG, echocardiogram, CT scan of the head. No any acute abnormality was found. Patient had urinalysis was nonspecific being related to UTI treated with IV antibiotics ceftriaxone. Patient was also found to have uncontrolled hypertension initially, for sinusitis patient was treated with Flonase which gave her symptomatic relief and advised on outpatient ENT follow-up. Patient was treated with IV antibiotic for UTI, we will be sent home with oral antibiotics, advised to follow with primary care physician two weeks. Condition at Discharge: Stable Final Diagnosis/Problems List urinary tract infection acute sinusitis Presyncope likely related to dehydration and hypertension hypertension urgency uncontrolled: essential HTN presbycusis right ear more than left: Paroxysmal A-FIB patient is on Xarelto. History of prior stroke hyperlipidemia: history of diabetes mellitus type 2 PUD/GERD: Known chronic HFpEF/hypertensive heart disease right lower lobe nodule Atherosclerotic vascular disease/ Aortic vascular calcifications Surgical History of Hysterectomy Surgical History of Tonsillectomy Surgical History on right foot arch Discharge Disposition: Home Discharge Instruct/Medications Diet: Regular Activity: No Restrictions, As Tolerated Follow Up/Referral: -follow up with PCP in 2 week Medications: prescription Discharge Statement: "Patient was advised to return to the ER or call 911 if any headaches, dizziness, shortness of breath, chest pain, abdominal pain, bleeding, fevers, or worsening of medical condition. Patient was counseled about treatment plan, medications, possible side effects, patientverbalized understanding. All questions were answered to the best of my ability. This discharge took greater then 30 minutes in planning, reviewing documentation, counseling the patient, and discussing with other team members." ASSESSMENT ASSESSMENT Assessment UTI acute sinusitis BRAYAN MATAMOROS RESIDENT Oct 19, 2024 13:27
[2024-10-19] MEDS ORDERED: CEPH250C PO (13:28)
== END 2024-10-19 14:00 | disposition home or self-care (01) | DRG 641 ==
LOC: ER 13:48 → OVERFLOW 22:56 → TELE-WESTW 10-16 02:32
PROVIDERS: ADMIT Student in an Organized Health Care Education/Training Program; ATTEND Emergency Medicine
DX: E86.0 Dehydration (principal); I50.32 Chronic diastolic (congestive) heart failure; N39.0 Urinary tract infection, site not specified; I16.0 Hypertensive urgency; I48.0 Paroxysmal atrial fibrillation; E78.2 Mixed hyperlipidemia; M54.9 Dorsalgia, unspecified; E11.9 Type 2 diabetes mellitus without complications; E87.6 Hypokalemia; I11.0 Hypertensive heart disease with heart failure; G90.89 Other disorders of autonomic nervous system; J01.90 Acute sinusitis, unspecified; I25.10 Atherosclerotic heart disease of native coronary artery without angina pectoris; H91.13 Presbycusis, bilateral; M85.80 Other specified disorders of bone density and structure, unspecified site; M48.03 Spinal stenosis, cervicothoracic region; Z79.01 Long term (current) use of anticoagulants; Z88.0 Allergy status to penicillin; Z88.2 Allergy status to sulfonamides; Z88.8 Allergy status to other drugs, medicaments and biological substances; Z79.899 Other long term (current) drug therapy; Z79.82 Long term (current) use of aspirin; Z90.710 Acquired absence of both cervix and uterus; Z87.11 Personal history of peptic ulcer disease; Z86.73 Personal history of transient ischemic attack (TIA), and cerebral infarction without residual deficits; Z80.9 Family history of malignant neoplasm, unspecified; Z83.3 Family history of diabetes mellitus; Z82.49 Family history of ischemic heart disease and other diseases of the circulatory system
CPT/HCPCS: 36415; 70450; 80048; 80053; 81001; 82306; 82607; 82962; 83036; 84443; 85025; 87040; 87086; 93005; 93306; 96365; 97110; 97116; 97163; 97530; G0378

== ENCOUNTER → 2024-11-20 | Day surgery (SDC) | payer OTHER ==
[2024-11-18 11:13] LABS: Urine Bacteria None Seen /hpf (None Seen)
[2024-11-18 11:31] LABS: INR 0.94 (0.9-1.15); Partial Thromboplastin Time 28.8 SEC (24.5-34.5)
[2024-11-18 11:50] LABS: Basophils # (auto) 0 10 ^3/uL (0-0.2); Basophils % (auto) 0.5 % (0.0-2.0); Eosinophils # (auto) 0.2 10 ^3/uL (0-0.8); Eosinophils % (auto) 4.6 % (0.0-7.0); Hematocrit 39.7 % (36.0-46.0); Hemoglobin 13.9 g/dL (12.2-16.2); Lymphocytes # (auto) 1.6 10 ^3/uL (0.4-5.4); Lymphocytes % (auto) 32.6 % (10.0-50.0); Mean Corpuscular Hemoglobin 30.9 pg (28.0-32.0); Mean Corpuscular Volume 88.3 fL (80.0-100.0); Monocytes # (auto) 0.4 10 ^3/uL (0-1.3); Monocytes % (auto) 7.8 % (0.0-12.0); Neutrophils # (auto) 2.7 10 ^3/uL (1.6-8.6); Neutrophils % (auto) 54.5 % (37.0-80.0); Nucleated Red Blood Cells % 0.2 %; Platelet Count (auto) 231 10^3/uL (140-450); Red Cell Distribution Width 13.4 % (11.8-14.3)
[2024-11-18 11:55] LABS: Urine Blood Negative /uL (Negative); Urine Budding Yeast OCCASIONAL /hpf (None Seen); Urine Clarity Clear (Clear); Urine Color Light-Yellow (Yellow); Urine Protein, UAD Negative (Negative); Urine Specific Gravity 1.011 (1.001-1.035); Urine Squamous Epithelial Cell FEW /hpf (<5); Urine Urobilinogen Normal (Negative); Urine WBC 1 /HPF (0-5)
[2024-11-18 11:56] LABS: Alanine Aminotransferase 26 U/L (7-40); Alkaline Phosphatase 113 U/L (46-116); Carbon Dioxide 29 mmol/L (20-31); Chloride 100 mmol/L (98-107)
[2024-11-18 11:57] LABS: Albumin 4.8 g/dL (3.2-4.8); Anion Gap 6 (5-15); Aspartate Aminotransferase 23 U/L (13-40); BUN/Creatinine Ratio 18.9 (10.0-20.0); Bilirubin, Total 0.5 mg/dL (0.2-1.0); Blood Urea Nitrogen 14 mg/dL (9-23); Glucose 104 mg/dL (74-106); Potassium 4.1 mmol/L (3.5-5.1); Total Protein 7.4 g/dL (5.7-8.2)
[2024-11-18 12:00] LABS: Calcium 10.7 mg/dL (8.7-10.4); Sodium 135 mmol/L (136-145)
[~2024-11-20] VITALS: Ht 162.6 cm; Wt 66.2 kg
[~2024-11-20] MED LIST changes: -APIX2.5T PO; -ASPI-543 PO; -ASPI1TAB20 PO; -ATOR40TA52 PO; +CEPH250C PO; -DIPH1TAB30 PO; -ESOM20CA PO; -EZET-10 PO; -EZET10TA22 OR; +FLUT50SP EACHNOSTRI; -LEVO500T91 PO; -METO-158 PO; -METO25TA5 PO; -METR-344 PO; +PROPOFOL 10 MG/ML 20 ML IV ONE; +RIVA10TA PO
[2024-11-20 12:49] VITALS: PULSE 70; RESP 15; O2SAT 100
--- NOTE | 2024-11-20 12:59 | DVHOP2 ---
Operative Report DATE OF OPERATION: 11/20/24 PROCEDURE: Upper Endoscopy with biopsy. PREOPERATIVE INDICATION: The patient is a 84 -year-old female undergoing endoscopy for dyspepsia and chronic diarrhea POSTOPERATIVE DIAGNOSES: 1. 2 cm sliding-type hiatal hernia with no significant erosive esophagitis 3. Mild antral gastritis with hyperemia and superficial antral gastric erosions 3. Minimal duodenitis of the duodenal bulb otherwise normal examination up to the 2nd and 3rd part of the duodenum PROCEDURE PERFORMED BY: Jerzy Killian GI NURSE: Kori SCOPE: Olympus videoendoscope. ASA CLASS: 2. PREOPERATIVE MEDICATIONS: Mac sedationDr. Henley PROCEDURE IN DETAIL: After obtaining an informed consent, the patient was placed on left lateral decubitus position. The patient was then sedated with the above medications. A bite block was placed between her teeth. The endoscope was then passed through the oropharynx, into the esophagus, and through the stomach and pylorus up to the second and third part of the duodenum. The endoscope was then withdrawn. The 2nd and 3rd part of the duodenum were normal and the duodenal bulb showed minimal duodenitis The pre-pyloric area antrum and body showed mild gastritis with pre-pyloric antral gastric erosions On retroflexion the fundus cardia and angularis were normal. Duodenal and gastric biopsies were obtained. The endoscope was then withdrawn into the distal esophagus where she had a 2 cm sliding-type hiatal hernia. There was no significant erosive esophagitis and no inflammatory changes of the GE junction The remaining distal and proximal esophagus and oropharynx were unremarkable The patient tolerated the procedure well without difficulty. COMPLICATIONS : None SPECIMENS: Duodenal biopsies Gastric biopsies DISPOSITION: Stay D/C to home PLAN: 1. Await for biopsy result 2. Will place pt on Protonix 20 mg p.o. daily 3. Resume GI soft diet advance as tolerated 4. Outpatient follow up with me in 2-4 weeks to review results and discuss further management 5. Avoid aspirin NSAIDs smoking alcohol JERZY KILLIAN MD November 20, 2024 12:59
[2024-11-20 13:39] VITALS: BP 143/62; PULSE 67; RESP 15; O2SAT 98
== END | disposition home or self-care (01) ==
LOC: GI 10:01
PROVIDERS: ATTEND Internal Medicine Gastroenterology
DX: R10.13 Epigastric pain (principal); K25.9 Gastric ulcer, unspecified as acute or chronic, without hemorrhage or perforation; R19.7 Diarrhea, unspecified; K29.80 Duodenitis without bleeding; K44.9 Diaphragmatic hernia without obstruction or gangrene; K29.50 Unspecified chronic gastritis without bleeding; I10 Essential (primary) hypertension; Z90.710 Acquired absence of both cervix and uterus; Z79.899 Other long term (current) drug therapy; Z98.890 Other specified postprocedural states
CPT/HCPCS: 36415; 43239; 80053; 81001; 85025; 85610; 85730; 88305; 88312; 88342; J2704; J7030

== ENCOUNTER 2025-05-11 13:24 | Outpatient (CLI) | payer OTHER ==
[~2025-05-11 13:24] MED LIST changes: -PROPOFOL 10 MG/ML 20 ML IV ONE
[2025-05-11 14:00] LABS: Hematocrit 39.4 % (36.0-46.0); Hemoglobin 13.5 g/dL (12.2-16.2); Mean Corpuscular Hemoglobin 31.0 pg (28.0-32.0); Mean Corpuscular Volume 90.4 fL (80.0-100.0); Nucleated Red Blood Cells % 0.1 %
[2025-05-11 14:38] LABS: Alanine Aminotransferase 17 U/L (7-40); Albumin 4.3 g/dL (3.2-4.8); Alkaline Phosphatase 103 U/L (46-116); Anion Gap 6 (5-15); BUN/Creatinine Ratio 17.1 (10.0-20.0); Blood Urea Nitrogen 13 mg/dL (9-23); Calcium 9.8 mg/dL (8.7-10.4); Carbon Dioxide 30 mmol/L (20-31); Chloride 98 mmol/L (98-107); Cholesterol 173 mg/dL (< 200); Glucose 102 mg/dL (74-106); Potassium 4.1 mmol/L (3.5-5.1); Total Protein 7.1 g/dL (5.7-8.2); Triglycerides 121 mg/dL (< 150)
[2025-05-11 14:39] LABS: Bilirubin, Total 0.5 mg/dL (0.2-1.0); HDL Cholesterol 72 mg/dL (40-59); Sodium 134 mmol/L (136-145)
[2025-05-11 14:41] LABS: Free T4 (Free Thyroxine) 0.94 ng/dL (0.89-1.76)
== END 2025-05-11 17:00 | disposition home or self-care (01) ==
LOC: LAB 13:24
PROVIDERS: ATTEND Internal Medicine
DX: I10 Essential (primary) hypertension (principal); I25.10 Atherosclerotic heart disease of native coronary artery without angina pectoris; Z83.3 Family history of diabetes mellitus; Z79.899 Other long term (current) drug therapy
CPT/HCPCS: 36415; 80053; 80061; 82607; 83036; 84439; 84443; 85025; 85652